=== PATIENT | female | born 1945 | race Caucasian/White ===

== ENCOUNTER 2016-12-04 22:23 | Inpatient (IN) | payer MEDICARE, OTHER ==
[2016-12-04] MEDS ORDERED: KETOROLAC 60 MG/2 ML VIAL IVP STA (23:03)
[2016-12-04] MEDS ORDERED: ONDANSETRON 4 MG/2 ML VIAL IVP STA (23:03)
[2016-12-04] MEDS ORDERED: SODIUM CHLORIDE 0.9% 1,000 ML IV ONE (23:03)
--- NOTE | 2016-12-04 23:06 | ED Physician Documentation ---
PD HPI ABD PAIN - Stated complaint Stated Complaint: ABD PX - Chief complaint Chief Complaint: Abd Pain - History obtained from History obtained from: Patient, Family - History of Present Illness Timing - onset: Enter time (2129), Today Timing - duration: Hours Timing - details: Abrupt onset, Still present Quality: Sharp, Pain Location: RLQ Improved by: Laying still Worsened by: Eating, Moving, Breathing, Position, Palpation Associated symptoms: Nausea, Vomiting Similar symptoms before: Has not had sx before Recently seen: Not recently seen - Additional information Additional information: 71-year-old female with a history of hypertension and prior hemorrhagic CVA has developed abdominal pain in the right lower quadrant today to about 9:30 PM. She felt that this may have something to do with some cookies that she ate. The pain has been persistent and worsening she vomited on the way to the hospital the pain is located in the right lower quadrant and is worse with any movement. The patient states that she is very uncomfortable. She has never had this pain previously. She has been feeling fatigued recently. Review of Systems Constitutional: reports: Fatigue. denies: Fever, Chills Eyes: denies: Decreased vision Ears: denies: Ear pain Nose: denies: Rhinorrhea / runny nose, Congestion Throat: denies: Sore throat Cardiac: denies: Chest pain / pressure, Palpitations Respiratory: denies: Dyspnea, Cough GI: reports: Abdominal Pain, Nausea, Vomiting : denies: Dysuria, Frequency Skin: denies: Rash Musculoskeletal: denies: Neck pain, Back pain, Extremity pain Neurologic: denies: Generalized weakness, Focal weakness, Numbness PD PAST MEDICAL HISTORY - Past Medical History Past Medical History: Yes Cardiovascular: Hypertension, High cholesterol Neuro: CVA Endocrine/Autoimmune: HyPOthyroidism - Past Surgical History General: 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 - Allergies Allergies/Adverse Reactions: Allergies Allergy/AdvReac Type Severity Reaction Status Date / Time No Known Drug Allergies Allergy Verified 12/04/16 22:41 - Social History Does the pt smoke?: No Smoking Status: Never smoker Does the pt drink ETOH?: No Does the pt have substance abuse?: No - Immunizations Immunizations are current?: Yes PD ED PE NORMAL - Vitals Vital signs reviewed: Yes (Normal) - General General: Alert and oriented X 3, Well developed/nourished, Other (The patient does appear to be in 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 There is referred tenderness to the right lower quadrant with palpation of the left lower quadrant. There is some right upper quadrant tenderness to palpation. There is guarding to palpation of the right lower quadrant and not to the right upper quadrant.) - Back Back: No CVA TTP, No spinal TTP - Derm Derm: Normal color, Warm and dry, No rash - Extremities Extremities: No deformity, No edema - Neuro Neuro: No motor deficit, No sensory deficit - Psych Psych: Normal mood, Normal affect Results - Vitals Vitals: Vital Signs - 24 hr 12/04/16 12/05/16 22:37 02:42 Temperature 35.2 C L Heart Rate 74 83 Respiratory 15 18 Rate Blood Pressure 113/60 105/68 O2 Saturation 98 97 Oxygen O2 Source Room air - Labs Labs: Laboratory Tests 12/04/16 12/04/16 12/05/16 23:15 23:15 00:45 WBC 11.7 H RBC 4.04 L Hgb 12.7 Hct 38.6 MCV 95.6 MCH 31.5 H MCHC 33.0 RDW 13.1 Plt Count 206 MPV 8.7 Neut # 8.7 H Lymph # 2.1 [place] # 0.7 Eos # 0.1 Baso # 0.1 Absolute Nucleated RBC 0.00 Nucleated RBCs 0.0 Sodium 140 Potassium 3.3 L Chloride 107 Carbon Dioxide 26 Anion Gap 7.0 BUN 20 Creatinine 0.6 Estimated GFR (MDRD) 99 Glucose 169 H Calcium 9.9 Total Bilirubin 0.4 AST 25 ALT 23 Alkaline Phosphatase 94 Total Protein 6.7 Albumin 4.1 Globulin 2.6 Albumin/Globulin Ratio 1.6 Lipase 44 Urine Color LT. YELLOW Urine Clarity CLEAR Urine pH 7.5 Ur Specific [place] 1.015 Urine Protein NEGATIVE Urine Glucose (UA) NEGATIVE Urine Ketones NEGATIVE Urine Occult Blood NEGATIVE Urine Nitrite NEGATIVE Urine Bilirubin NEGATIVE Urine Urobilinogen 0.2 (NORMAL) Ur Leukocyte Esterase NEGATIVE Ur Microscopic Review NOT INDICATED Urine Culture Comments NOT INDICATED Procedures - Bedside sono Bedside sono by EMP: With use of bedside ultrasound the gallbladder is imaged and is without evidence of stone and it is sonographically nontender. PD MEDICAL DECISION MAKING - ED course Complexity details: reviewed old records, reviewed results, re-evaluated patient , considered differential, d/w patient, d/w family ED course: 71-year-old female with acute right lower quadrant abdominal pain appears to have appendicitis on initial evaluation. An IV is begun she is given Toradol and Zofran intravenously and a CT scan of the abdomen and pelvis is undertaken.There is not evidence of appendicitis on the CT scan. There is evidence of bowel obstruction in the right lower quadrant. Dr. Aranda is consulted in the case and recommends admission to medicine and consultation.The patient is begun on IV saline at 150 mL's an hour she is given an additional Dilaudid intravenously for pain control as well as a K rider. Departure - Departure Disposition: [facility] DC/Xfer Clinical Impression: Small bowel obstruction Condition: Stable Discharge Date/Time: 12/05/16 04:17
[2016-12-04] MEDS ORDERED: ONDANSETRON 4 MG/2 ML VIAL ONE (23:09)
[2016-12-04] MEDS ORDERED: KETOROLAC 30 MG/ML VIAL ONE (23:09)
[2016-12-04 23:30] LABS: BASOPHILS # (AUTO) 0.1 10^3/uL (0.0-0.1); BASOPHILS % (AUTO) 0.5 %; EOSINOPHILS # (AUTO) 0.1 10^3/uL (0.0-0.7); HCT - HEMATOCRIT 38.6 % (37.0-47.0); HGB - HEMOGLOBIN 12.7 g/dL (12.0-16.0); LYMPHOCYTES # (AUTO) 2.1 10^3/uL (1.5-3.5); LYMPHOCYTES % (AUTO) 18.1 %; MEAN CORPUSCULAR HEMOGLOBIN 31.5 pg (27.0-31.0); MEAN CORPUSCULAR VOLUME 95.6 fL (81.0-99.0); MEAN PLATELET VOLUME 8.7 fL (7.9-10.8); MONOCYTES # (AUTO) 0.7 10^3/uL (0.0-1.0); NEUTROPHILS # (AUTO) 8.7 10^3/uL (1.5-6.6); NEUTROPHILS % (AUTO) 74.4 %; RED BLOOD COUNT 4.04 10^6/uL (4.20-5.40); RED CELL DISTRIBUTION WIDTH 13.1 % (12.0-15.0); UNCORRECTED WHITE BLOOD COUNT 11.7 x10^3/uL; WHITE BLOOD COUNT 11.7 x10^3/uL (4.8-10.8)
[2016-12-04 23:43] LABS: ALBUMIN/GLOBULIN RATIO 1.6 (1.0-2.2); BILIRUBIN,TOTAL 0.4 mg/dL (0.2-1.0); CALCIUM 9.9 mg/dL (8.5-10.3); CREATININE 0.6 mg/dL (0.4-1.0); POTASSIUM 3.3 mmol/L (3.5-5.0); TOTAL PROTEIN 6.7 g/dL (6.7-8.2)
--- NOTE | 2016-12-05 00:07 | CT Preliminary Report ---
Exam: CT Abdomen/Pelvis W/O IMPRESSION: 1. Cluster of mildly dilated right lower quadrant, distal small bowel loops with no definite transiti on point. This may be secondary to a regional ileus or developing obstruction. No associated fluid co llections or free air. 2. No evidence of appendicitis. Line 3. No urinary tract stones. 4. Hiatal hernia. [facility] SITE ID: [id number]
--- NOTE | 2016-12-05 00:10 | CT Report ---
EXAM: CT ABDOMEN AND PELVIS (CT KUB) EXAM DATE: 12/04/2016 11:42 PM. CLINICAL HISTORY: RLQ pain. COMPARISONS: None. TECHNIQUE: Routine axial helical CT imaging was performed through the abdomen and pelvis without IV c ontrast. Reconstructions: Coronal and sagittal. In accordance with CT protocol optimization, one or more of the following dose reduction techniques w ere utilized for this exam: automated exposure control, adjustment of mA and/or KV based on patient s ize, or use of iterative reconstructive technique. FINDINGS: Lung Bases: The visualized lung bases are clear. There is a small hiatal hernia. Right Kidney/Ureter: No stones, hydronephrosis, or hydroureter. No perinephric fat stranding. Left Kidney/Ureter: No stones, hydronephrosis, or hydroureter. No perinephric fat stranding. Other Solid Organs: Noncontrast images of the solid organs are grossly unremarkable. Gallbladder/Bile Ducts: Unremarkable. Peritoneal Cavity: There is a cluster of mildly dilated small bowel loops in the right lower quadrant with surrounding mesenteric edema. No obstructing mass or hernia seen. No associated fluid collectio ns or pneumoperitoneum. There is no evidence of appendicitis. Pelvic Organs: No bladder stones or wall thickening. Noncontrast images of the visualized pelvic orga ns are unremarkable. Vasculature: Unremarkable. Other: None. IMPRESSION: 1. Cluster of mildly dilated right lower quadrant, distal small bowel loops with no definite transiti on point. This may be secondary to a regional ileus or developing obstruction. No associated fluid co llections or free air. 2. No evidence of appendicitis. Line 3. No urinary tract stones. 4. Hiatal hernia. [facility] Referring Provider Line: [phone] SITE ID: [id number]
[2016-12-05 00:55] LABS: BILIRUBIN,URINE NEGATIVE (NEGATIVE); PH,URINE 7.5 PH (5.0-7.5)
[2016-12-05 01:02] LABS: UA CHARGE (STRIP ONLY) YES; UR CULTURE IF IND NOT INDICATED
[2016-12-05] MEDS ORDERED: POTASSIUM CHLOR 10 MEQ/100 ML 100 ML IV ONE ×2 (02:24→02:37)
[2016-12-05] MEDS ORDERED: SODIUM CHLORIDE 0.9% 1,000 ML IV ONE (02:24)
[2016-12-05] MEDS ORDERED: HYDROmorphone 1 MG/ML CARPUJECT IVP STA (02:24)
[2016-12-05] MEDS ORDERED: HYDROmorphone 1 MG/ML CARPUJECT ONE (02:36)
[2016-12-05] MEDS ORDERED: PROCHLORPERAZINE 10 MG/2 ML VIAL IVP PRN (03:44)
[2016-12-05] MEDS ORDERED: KETOROLAC 15 MG/ML VIAL IVP PRN (04:03)
--- NOTE | 2016-12-05 04:33 | HISTORY & PHYSICAL EXAMINATION ---
DATE OF ADMISSION: 12/05/2016 CHIEF COMPLAINT: Abdominal pain. HISTORY OF PRESENT ILLNESS: The patient is a pleasant 71-year-old white female with past medical history of hiatal hernia repair and hysterectomy, also with history of hypertension, hypothyroidism, and cerebrovascular accident, who was in her usual state of health up to 9 p.m. on 12/04. At that time she developed somewhat acute right lower quadrant abdominal pain. Her pain was intense, was associated with nausea and vomiting. She ate some cookies earlier and initially she thought that is what caused the problem. The pain, however, got more intense , did not resolve; therefore, one of her friends drove her to [facility]. En route, she vomited and subsequently in the ER she had several further episodes of emesis. She reported no blood in her vomitus, but she did see some bile. On further interview, she reported not having a regular bowel movement for the last 4 days. She felt constipated. She did pass some bowel movements, which were much smaller than usual. Last one was earlier on 12/05. She attributed the change in her bowel habits to change in her diet and decreased exercise. She had been staying with friends on [facility] and that is what caused the change in her daily routine. Upon presentation to the ER, the patient was hemodynamically stable and afebrile. She actually had a temperature on the lower side, 35.2 Celsius. Her heart rate was between 70 and 80, blood pressure was 110/60, respiratory rate 18. Oxygen saturation 98% on room air. Laboratory showed mildly elevated white blood cell count at 11.7. Potassium was 3.3, blood glucose was 169. Urinalysis was normal. The patient underwent CT scan of the abdomen, which revealed small- bowel obstruction without definite transition point. The ER physician, Dr. Page, talked to the covering surgeon who will consult on the case. PAST MEDICAL HISTORY 1. 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 2. Hypertension. 3. Hypothyroidism. 4. Dyslipidemia. 5. Hiatal hernia status post repair. 6. Depression. 7. Status post hysterectomy. OUTPATIENT MEDICATIONS The patient could not provide medication list, but she recalled taking 1. Lipitor. 2. Thyroid medication. 3. Lisinopril. 4. Nifedipine. 5. Fluoxetine. CODE STATUS: FULL CODE. FAMILY HISTORY: Negative for cerebrovascular accident. Positive for diabetes in multiple family members. SOCIAL HISTORY: The patient does not smoke, does not drink. REVIEW OF SYSTEMS: Please see pertinent positives listed above in history of present illness. The patient reported no additional complaints on the 12-point review. PHYSICAL EXAMINATION VITAL SIGNS: See listed above in history of present illness. GENERAL: The patient is a well-developed, well-nourished female who was not in distress. ABDOMEN: Hypoactive bowel tones, almost silent, diffuse tenderness without rebound. Abdomen felt distended, tympanic. CVS: S1, S2. No pathologic murmur. RESPIRATORY: Lungs clear to auscultation without wheezes or crackles. NEUROLOGICAL: Alert, oriented, nonfocal. PSYCH: Cooperative. LYMPH: No lymphedema. MUSCULOSKELETAL: Atraumatic. SKIN: Without jaundice or pallor. PERTINENT DIAGNOSTICS: Reviewed per ER record. ASSESSMENT AND PLAN: The patient is getting admitted with small-bowel obstruction, uncontrolled pain. Notably, she received IV Dilaudid in the ER, after which her symptoms slightly improved, but not resolved. In addition, on admission, she was found with mild hypokalemia and a slightly elevated white blood cell count. The patient is getting admitted under inpatient status. She fulfills criteria for inpatient stay given the above-listed problems. For now, she is managed conservatively, receiving bowel rest, IV hydration. She already received potassium replacement in the ER. We will recheck potassium and replace further if needed. We will check magnesium and phosphorus as well as replace if needed. The patient is going to receive proton pump inhibitor. For blood pressure control, we will use IV labetalol as needed. Notably, the patient was on nifedipine and lisinopril and due to bowel obstruction and constant nausea and vomiting, she will not be able to take oral medications. With morning laboratories, we will check lactic acid. To conservatively treat the bowel obstruction, we will decompress with an NG tube and orders are placed for that. Deep venous thrombosis prophylaxis. FULL CODE. Time spent with the care of this patient was 55 minutes. JOB #: [id number] EXT JOB #:[id number] RAFFAELE
[2016-12-05] MEDS: ONDANSETRON 4 MG/2 ML VIAL IVP PRN (04:59)
[2016-12-05 06:07] LABS: BASOPHILS % (AUTO) 0.2 %; HCT - HEMATOCRIT 38.4 % (37.0-47.0); HGB - HEMOGLOBIN 12.7 g/dL (12.0-16.0); LYMPHOCYTES # (AUTO) 0.8 10^3/uL (1.5-3.5); LYMPHOCYTES % (AUTO) 7.6 %; MEAN CORPUSCULAR HEMOGLOBIN 32.1 pg (27.0-31.0); MEAN PLATELET VOLUME 8.7 fL (7.9-10.8); MONOCYTES # (AUTO) 0.3 10^3/uL (0.0-1.0); MONOCYTES % (AUTO) 3.1 %; NEUTROPHILS # (AUTO) 8.9 10^3/uL (1.5-6.6); NEUTROPHILS % (AUTO) 89.1 %; RED BLOOD COUNT 3.96 10^6/uL (4.20-5.40); RED CELL DISTRIBUTION WIDTH 13.1 % (12.0-15.0)
[2016-12-05 06:14] LABS: CALCIUM 9.4 mg/dL (8.5-10.3); CREATININE 0.6 mg/dL (0.4-1.0); POTASSIUM 3.8 mmol/L (3.5-5.0)
[2016-12-05 06:17] LABS: MAGNESIUM 1.8 mg/dL (1.7-2.8); PHOSPHORUS 2.5 mg/dL (2.5-4.6)
[2016-12-05] MEDS: HYDROmorphone 1 MG/ML CARPUJECT IVP PRN ×4 (06:44→21:44)
[2016-12-05] MEDS: SODIUM CHLORIDE FLUSH 0.9% 10 ML SYRINGE IVP SCH ×3 (06:45→19:38)
[2016-12-05] MEDS: PANTOPRAZOLE 40 MG VIAL IVP SCH (06:48)
[2016-12-05] MEDS: LACTATED RINGERS 1,000 ML IV SCH ×2 (06:51→16:52)
--- NOTE | 2016-12-05 07:28 | XRAY Preliminary Report ---
Exam: XR Chest for Line Placement IMPRESSION: 1. Distal segment of enteric tube is coiled in a known small hiatus hernia. [facility] SITE ID: [id number]
--- NOTE | 2016-12-05 07:30 | XRAY Report ---
EXAM: CHEST RADIOGRAPHY EXAM DATE: 12/05/2016 06:16 AM. CLINICAL HISTORY: NG tube placement. COMPARISON: CT abdomen and pelvis yesterday. TECHNIQUE: 1 view. FINDINGS: Device: Interval enteric tube with the distal segment coiled in a small hiatus hernia. Lungs/Pleura: Mild bibasilar hypoventilatory change. No consolidation or vasculature congestion. No p neumothorax or pleural effusion. Mediastinum: Mildly rotated. Normal heart size. Other: No acute fracture. IMPRESSION: 1. Distal segment of enteric tube is coiled in a known small hiatus hernia. [facility] Referring Provider Line: [phone] SITE ID: [id number]
[2016-12-05] MEDS: POLYETHYLENE GLYCOL 3350 17 GM PACKET PO SCH (10:00)
--- NOTE | 2016-12-05 16:06 | CONSULTATION NOTE ---
DATE OF CONSULTATION: 12/05/2016 00:00:00 REQUESTING PROVIDER: Marry Whitney NP REASON FOR CONSULTATION: Abdominal pain, possible ileus versus small-bowel obstruction. HISTORY OF PRESENT ILLNESS: This is a 71-year-old female who presented to the emergency department yesterday in the evening with complaints of progressive crampy abdominal pain, nausea and vomiting. She said she woke up feeling nauseous and began vomiting in the morning and continued to have dry heaves throughout the day. Her abdominal pain became progressively worse and was mostly located in the right lower quadrant. Upon evaluation in the emergency department, she was noted to be hemodynamically stable with a slightly elevated white blood cell count of 11.7. Subsequently, a non-oral contrast CT scan of the abdomen was performed, which demonstrated mildly dilated loops of bowel in the right lower quadrant with no obvious transition point, concerning for ileus versus obstruction. No evidence of appendicitis. A surgical consultation was then obtained. Upon my evaluation of the patient, she is lying in bed comfortably and states that her pain has improved. She has an NG tube, which was placed early this morning, which has not drained anything. Currently, she denies any nausea. The patient states that her last bowel movement was yesterday , which was also the last time she passed gas. She denies any prior episodes of small bowel obstruction. PAST MEDICAL HISTORY: Significant for history of stroke in 2006 with residual left-sided sensory impairment, hypertension, hypothyroidism, dyslipidemia, hiatal hernia, depression. PAST SURGICAL HISTORY: Hysterectomy and ventral hernia repair. HOME MEDICATIONS 1. Lipitor. 2. Levothyroxine. 3. Lisinopril. 4. Nifedipine. 5. Fluoxetine. ALLERGIES TO MEDICATIONS: NO KNOWN DRUG ALLERGIES. SOCIAL HISTORY: The patient has 2 friends, which are present at the bedside, which she considers family. She does not smoke or use alcohol. PHYSICAL EXAMINATION VITAL SIGNS: Temperature is 36.2, heart rate is 96, blood pressure is 144/68, respiratory rate is 20, O2 saturation is 93% on room air. GENERAL: The patient is awake, alert, oriented x3, in no acute distress. She is of average build. CARDIOVASCULAR: Regular rate and rhythm. CHEST: Clear to auscultation bilaterally with no rhonchi or wheezing. ABDOMEN: Soft, very slightly distended, mildly tender to palpation in the pelvic region and right lower quadrant. EXTREMITIES: Nonedematous. LABORATORY VALUES: On admission, white blood cell count 11.7, hemoglobin 12.7, hematocrit 38.6, platelets 206. Sodium 140, potassium 3.3, chloride 107, bicarbonate 26, BUN 20, creatinine 0.6. Lactate 1.6. ASSESSMENT: This is a 71-year-old female who presents with abdominal pain, ileus pattern versus small-bowel obstruction. PLAN: The patient should be kept n.p.o. with an NG tube to low continuous wall suction. The NG tube was repositioned upon my evaluation of the patient with minimal clear fluid evacuated during this process. I recommend performing a small bowel series to determine ileus versus small-bowel obstruction. Once the patient demonstrates bowel function and is passing flatus, the NG tube can be clamped and clear liquids started. I have encouraged the patient to ambulate as much as possible and discussed with her the role of possible surgery if a bowel obstruction is discovered on imaging and this does not resolve with conservative management. JOB #: [id number] EXT JOB #:[id number] RAFFAELE
[2016-12-06] MEDS: HYDROmorphone 1 MG/ML CARPUJECT IVP PRN ×5 (02:41→19:07)
[2016-12-06] MEDS: SODIUM CHLORIDE FLUSH 0.9% 10 ML SYRINGE IVP SCH ×3 (02:41→16:34)
[2016-12-06] MEDS: LACTATED RINGERS 1,000 ML IV SCH (05:18)
[2016-12-06 05:55] LABS: BASOPHILS % (AUTO) 0.2 %; HCT - HEMATOCRIT 43.6 % (37.0-47.0); HGB - HEMOGLOBIN 14.4 g/dL (12.0-16.0); LYMPHOCYTES # (AUTO) 0.9 10^3/uL (1.5-3.5); LYMPHOCYTES % (AUTO) 5.7 %; MEAN CORPUSCULAR HEMOGLOBIN 31.8 pg (27.0-31.0); MEAN CORPUSCULAR HGB CONC 33.1 g/dL (32.0-36.0); MEAN CORPUSCULAR VOLUME 96.2 fL (81.0-99.0); MEAN PLATELET VOLUME 8.2 fL (7.9-10.8); MONOCYTES # (AUTO) 1.1 10^3/uL (0.0-1.0); MONOCYTES % (AUTO) 7.1 %; NEUTROPHILS # (AUTO) 13.4 10^3/uL (1.5-6.6); RED BLOOD COUNT 4.53 10^6/uL (4.20-5.40); RED CELL DISTRIBUTION WIDTH 13.3 % (12.0-15.0); UNCORRECTED WHITE BLOOD COUNT 15.5 x10^3/uL; WHITE BLOOD COUNT 15.5 x10^3/uL (4.8-10.8)
[2016-12-06 06:10] LABS: ALBUMIN/GLOBULIN RATIO 1.2 (1.0-2.2); BILIRUBIN,TOTAL 0.6 mg/dL (0.2-1.0); CALCIUM 9.6 mg/dL (8.5-10.3); CREATININE 0.6 mg/dL (0.4-1.0); MAGNESIUM 1.8 mg/dL (1.7-2.8); POTASSIUM 4.2 mmol/L (3.5-5.0); TOTAL PROTEIN 6.3 g/dL (6.7-8.2)
[2016-12-06] MEDS: PANTOPRAZOLE 40 MG VIAL IVP SCH (06:21)
--- NOTE | 2016-12-06 08:10 | PROVIDER PROGRESS NOTE ---
Subjective - Prog Note Date Prog Note Date: 12/06/16 Prog Note Time: 08:09 - Subjective Pt reports feeling: Improved Subjective: Patient seen at bedside and states she is still having some mild pain in the right lower quadrant and is tender with palpation. has no fever but some mild chills last night. She has no chest pain or shortness of breath. no nausea. pending xray with gastrograffin follow thru since can not do a small bowel follow thru with no flouroscopy Current Medications - Current Medications Current Medications: Abnormal Lab Results 12/04/16 12/04/16 12/05/16 23:15 23:15 05:55 WBC 11.7 x10^3/uL H x10^3/uL (4.8-10.8) RBC 4.04 10^6/uL L 10^6/uL 3.96 10^6/uL L 10^6/uL (4.20-5.40) (4.20-5.40) MCH 31.5 pg H pg 32.1 pg H pg (27.0-31.0) (27.0-31.0) Neut # 8.7 10^3/uL H 10^3/uL 8.9 10^3/uL H 10^3/uL (1.5-6.6) (1.5-6.6) Lymph # 0.8 10^3/uL L 10^3/uL (1.5-3.5) Hall # Potassium 3.3 mmol/L L mmol/L (3.5-5.0) Glucose 169 mg/dL H mg/dL (70-100) Estim Average Glucose Total Protein 12/05/16 12/06/16 12/06/16 05:55 05:35 05:35 WBC 15.5 x10^3/uL H x10^3/uL (4.8-10.8) RBC MCH 31.8 pg H pg (27.0-31.0) Neut # 13.4 10^3/uL H 10^3/uL (1.5-6.6) Lymph # 0.9 10^3/uL L 10^3/uL (1.5-3.5) Hall # 1.1 10^3/uL H 10^3/uL (0.0-1.0) Potassium Glucose 175 mg/dL H mg/dL 163 mg/dL H mg/dL (70-100) (70-100) Estim Average Glucose Total Protein 6.3 g/dL L g/dL (6.7-8.2) 12/06/16 08:35 WBC RBC MCH Neut # Lymph # Hall # Potassium Glucose Estim Average Glucose 105 H (70-100) Total Protein Active Medications Generic Name Dose Route Start Last Admin Trade Name Freq PRN Reason Stop Dose Admin Hydromorphone HCl 1 mg 12/05/16 03:44 12/06/16 14:19 Dilaudid Inj IVP 1 mg Q2HR PRN Administration Pain 8 to 10 Lactated Ringer's 1,000 mls @ 80 mls/hr 12/05/16 04:00 12/06/16 05:18 Lr IV 80 mls/hr .[id number] TUTU Administration Piperacillin Sod/Tazobactam 100 mls @ 200 mls/hr 12/06/16 16:00 12/06/16 16:32 Sod 3.375 gm/ Sodium Chloride IV 200 mls/hr Q6H TUTU Administration Labetalol HCl 10 mg 12/05/16 03:50 Trandate Inj IV Q8HR PRN Blood Pressure Ondansetron HCl 4 mg 12/05/16 03:44 12/05/16 04:59 Zofran Inj IVP 4 mg Q6HR PRN Administration Nausea / Vomiting Pantoprazole Sodium 40 mg 12/05/16 07:00 12/06/16 06:21 Protonix IVP 40 mg QDAC TUTU Administration Polyethylene Glycol 17 gm 12/05/16 09:00 12/06/16 09:35 Miralax PO Not Given DAILY TUTU Prochlorperazine Edisylate 10 mg 12/05/16 03:44 Compazine Inj IVP Q6HR PRN Nausea / Vomiting Sodium Chloride 10 ml 12/05/16 03:44 Normal Saline Flush 0.9% IVP PRN PRN NEEDED PER PROVIDER ORDERS Sodium Chloride 10 ml 12/05/16 06:00 12/06/16 16:34 Normal Saline Flush 0.9% IVP 10 ml Q8HR TUTU Administration Atorvastatin Calcium 20 mg PO DAILY 12/05/16 Fluoxetine HCl 20 mg PO DAILY PM 12/05/16 Levothyroxine [Synthroid] 25 mcg PO QDAC 12/05/16 Liothyronine [Cytomel] 15 mcg PO QDAC 12/05/16 Lisinopril 40 mg PO DAILY 12/05/16 Nifedipine [Nifedipine ER] 60 mg PO DAILY 12/05/16 Objective - Vital Signs/Intake & Output Reviewed Vital Signs: Yes Vital Signs: Vital Signs x48h Temp Pulse Resp BP Pulse Ox 12/06/16 07:28 36.4 C L 94 20 129/70 94 12/06/16 05:00 37.3 C 109 H 16 153/73 H 93 12/06/16 00:29 37.4 C 105 H 16 125/70 94 Intake & Output: Intake & Output 12/03/16 12/04/16 12/05/16 12/06/16 23:59 23:59 23:59 23:59 Intake Total 1796 655 Balance 1796 655 - Objective General Appearance: positive: No acute distress, Alert Eyes Bilateral: positive: Normal inspection, PERRL ENT: positive: ENT inspection nml, Pharynx nml, No signs of dehydration Neck: positive: Nml inspection, Thyroid nml, No JVD, Trachea midline Respiratory: positive: Chest non-tender, No respiratory distress, Breath sounds nml Cardiovascular: positive: Regular rate & rhythm, No murmur, No gallop Abdomen: positive: No organomegaly, No distention, Tenderness (right lower quadrant with palpation). negative: Guarding, Rebound Back: positive: Nml inspection. negative: CVA tenderness (R), CVA tenderness (L ) Skin: positive: Color nml, No rash, Warm, Dry, Cyanosis Extremities: positive: Non-tender, Full ROM, Nml appearance Neurologic/Psychiatric: positive: Oriented x3, CN's nml (2-12), Motor nml, Sensation nml, Mood/affect nml - Lab Results Fish Bones: 12/07/16 05:53 12/07/16 05:53 Other Labs: Lab Results x24hrs 12/06/16 12/06/16 Range/Units 05:35 05:35 WBC 15.5 H (4.8-10.8) x10^3/uL RBC 4.53 (4.20-5.40) 10^6/uL Hgb 14.4 (12.0-16.0) g/dL Hct 43.6 (37.0-47.0) % MCV 96.2 (81.0-99.0) fL MCH 31.8 H (27.0-31.0) pg MCHC 33.1 (32.0-36.0) g/dL RDW 13.3 (12.0-15.0) % Plt Count 210 (130-450) 10^3/uL MPV 8.2 (7.9-10.8) fL Neut # 13.4 H (1.5-6.6) 10^3/uL Lymph # 0.9 L (1.5-3.5) 10^3/uL Hall # 1.1 H (0.0-1.0) 10^3/uL Eos # 0.0 (0.0-0.7) 10^3/uL Baso # 0.0 (0.0-0.1) 10^3/uL Absolute Nucleated RBC 0.00 x10^3/uL Nucleated RBCs 0.0 /100WBC Sodium 140 (135-145) mmol/L Potassium 4.2 (3.5-5.0) mmol/L Chloride 106 (101-111) mmol/L Carbon Dioxide 28 (21-32) mmol/L Anion Gap 6.0 (6-13) BUN 18 (6-20) mg/dL Creatinine 0.6 (0.4-1.0) mg/dL Estimated GFR (MDRD) 99 (>89) Glucose 163 H (70-100) mg/dL Calcium 9.6 (8.5-10.3) mg/dL Magnesium 1.8 (1.7-2.8) mg/dL Total Bilirubin 0.6 (0.2-1.0) mg/dL AST 22 (10-42) IU/L ALT 19 (10-60) IU/L Alkaline Phosphatase 79 (42-121) IU/L Total Protein 6.3 L (6.7-8.2) g/dL Albumin 3.4 (3.2-5.5) g/dL Globulin 2.9 (2.1-4.2) g/dL Albumin/Globulin Ratio 1.2 (1.0-2.2) - Diagnostic Imaging Diagnostic Imaging Results: positive: Prelim report reviewed Diagnostic Imaging Comments: small dialated loops of bowel with thickening and with fluid. Assessment/Plan - Problem List (1) Small bowel obstruction Impression: Small bowel obstruction vs ileus - ACUTE CONTINUE WITH NG TO SUCTION. SURGERY ON CONSULT. PENDING GASTROGRAFFIN STUDY XRAY FOR ILEUS VS SBO. (2) Leukocytosis, unspecified Impression: [place] [address]. CONTINUE TO MONITOR DAILY WITH LAB DRAWS. CONTINUE WITH IVF NS AND PAIN MANAGEMENT. NPO Qualifiers: Leukocytosis type: unspecified Qualified Code(s): D72.829 - Elevated white blood cell count, unspecified
[2016-12-06] MEDS: POLYETHYLENE GLYCOL 3350 17 GM PACKET PO SCH (09:35)
--- NOTE | 2016-12-06 13:25 | PROVIDER PROGRESS NOTE ---
Subjective - General Admit Date: 12/05/16 - Review of Systems Drain Type: ngt Drain Output Description: 400 bilious General: positive: No symptoms Pulmonary: positive: No symptoms Cardiovascular: positive: No symptoms Gastrointestinal: positive: Other (denies emesis but occasional nausea. No flatus. Minimal abdominal pain which is imprpving since admission) Psychiatric: positive: No symptoms Objective - Patient Data Reviewed Vital Signs: Yes Vital Signs: Vital Signs x48h Temp Pulse Resp BP BP Pulse Ox 12/06/16 10:54 36.9 C 91 20 151/80 H 90 L 12/06/16 07:28 36.4 C L 94 20 129/70 94 Weight: Weight 12/04/16 12/05/16 12/06/16 23:59 23:59 23:59 Weight (kg) 67 kg Intake & Output: Intake and Output Totals x24h 12/04/16 12/05/16 12/06/16 23:59 23:59 23:59 Intake Total 1796 675 Balance 1796 675 - Lab Results Lab Results: 12/06/16 05:35 12/06/16 05:35 Other Lab Results: Lab Results x24hrs 12/06/16 12/06/16 Range/Units 05:35 05:35 WBC 15.5 H (4.8-10.8) x10^3/uL RBC 4.53 (4.20-5.40) 10^6/uL Hgb 14.4 (12.0-16.0) g/dL Hct 43.6 (37.0-47.0) % MCV 96.2 (81.0-99.0) fL MCH 31.8 H (27.0-31.0) pg MCHC 33.1 (32.0-36.0) g/dL RDW 13.3 (12.0-15.0) % Plt Count 210 (130-450) 10^3/uL MPV 8.2 (7.9-10.8) fL Neut # 13.4 H (1.5-6.6) 10^3/uL Lymph # 0.9 L (1.5-3.5) 10^3/uL [place] # 1.1 H (0.0-1.0) 10^3/uL Eos # 0.0 (0.0-0.7) 10^3/uL Baso # 0.0 (0.0-0.1) 10^3/uL Absolute Nucleated RBC 0.00 x10^3/uL Nucleated RBCs 0.0 /100WBC Sodium 140 (135-145) mmol/L Potassium 4.2 (3.5-5.0) mmol/L Chloride 106 (101-111) mmol/L Carbon Dioxide 28 (21-32) mmol/L Anion Gap 6.0 (6-13) BUN 18 (6-20) mg/dL Creatinine 0.6 (0.4-1.0) mg/dL Estimated GFR (MDRD) 99 (>89) Glucose 163 H (70-100) mg/dL Calcium 9.6 (8.5-10.3) mg/dL Magnesium 1.8 (1.7-2.8) mg/dL Total Bilirubin 0.6 (0.2-1.0) mg/dL AST 22 (10-42) IU/L ALT 19 (10-60) IU/L Alkaline Phosphatase 79 (42-121) IU/L Total Protein 6.3 L (6.7-8.2) g/dL Albumin 3.4 (3.2-5.5) g/dL Globulin 2.9 (2.1-4.2) g/dL Albumin/Globulin Ratio 1.2 (1.0-2.2) - Current Medications Current Medications: Current Medications Generic Name Dose Route Start Last Admin Trade Name Freq PRN Reason Stop Dose Admin Hydromorphone HCl 1 mg 12/05/16 03:44 12/06/16 09:35 Dilaudid Inj IVP 1 mg Q2HR PRN Administration Pain 8 to 10 Lactated Ringer's 1,000 mls @ 80 mls/hr 12/05/16 04:00 12/06/16 05:18 Lr IV 80 mls/hr .[id number] TUTU Administration Ondansetron HCl 4 mg 12/05/16 03:44 12/05/16 04:59 Zofran Inj IVP 4 mg Q6HR PRN Administration Nausea / Vomiting Pantoprazole Sodium 40 mg 12/05/16 07:00 12/06/16 06:21 Protonix IVP 40 mg QDAC TUTU Administration Polyethylene Glycol 17 gm 12/05/16 09:00 12/06/16 09:35 Miralax PO Not Given DAILY [facility] Sodium Chloride 10 ml 12/05/16 06:00 12/06/16 12:57 Normal Saline Flush 0.9% IVP Not Given Q8HR TUTU - Physical Exam General Appearance: positive: No acute distress Respiratory: positive: Breath sounds nml Cardiovascular: positive: Regular rate & rhythm Abdomen: positive: Other (soft, minimally distended with mild tenderness to palpation more prominent in RLQ.) Extremities: positive: No pedal edema Neurologic/Psychiatric: positive: Oriented x3 Impression/Plan - Problem List Problem List: Small bowel obstruction vs ileus - Continue NGT to suction. Will obtain gastrograffin study with 100 cc non- diluted gastrograffin and serial abdominal xrays to determine ileus vs SBO. - Leukocytosis - uncertain etiology. Patient remains afebrile. Abd xray repeat with no signs of free air. Will continue to monitor. No findings on initial CT to suggest appendicitis or other intra-abdominal infectious etiology other than dilated loops of small bowel. - Encourage ambulation - IV fluid hydration
[2016-12-06] MEDS: PIPERACILLIN/TAZOBACTAM 3.375 GM in SODIUM CHLORIDE 0.9% MINIBAG 100 ML IV SCH ×2 (16:32→21:49)
[2016-12-06 17:09] LABS: HEMOGLOBIN A1C 0.53 g/dL
--- NOTE | 2016-12-06 17:42 | Ultrasound Report ---
LIMITED ABDOMEN ULTRASOUND: 12/06/2016 HISTORY: Right lower quadrant pain. Elevated white count. Real-time scanning by the statement request clerk with saved static images reviewed. COMPARISON: CT scan abdomen and pelvis 12/04/2016. FINDINGS: The appendix is not definitely identified. There is a small amount of free fluid in the right lower quadrant. Extensive fluid-filled mildly thick walled bowel with limited compressibility is seen in the right lower quadrant. No definite abscess collection is seen. IMPRESSION: THE APPENDIX IS NOT IDENTIFIED WITH CERTAINTY. DILATED LOOPS OF FLUID-FILLED BOWEL WITH MILDLY THICKENED WALL AND LIMITED COMPRESSIBILITY ARE PRESENT. IF THE CLINICAL SUSPICION FOR APPENDICITIS IS HIGH, SUGGEST REPEAT CT SCAN OF THE ABDOMEN AND PELVIS WITH IV CONTRAST IF POSSIBLE. JOB #: [id number] EXT JOB #: [id number] MTDFarideh
[2016-12-06] MEDS: SODIUM CHLORIDE FLUSH 0.9% 10 ML SYRINGE IVP PRN ×2 (19:07→19:10)
[2016-12-06] MEDS ORDERED: IOPAMIDOL-300 100 ML VIAL IVP ONE (22:28)
--- NOTE | 2016-12-06 23:23 | CT Preliminary Report ---
Exam: CT Abdomen/Pelvis W/ IMPRESSION: 1. Mid to distal small bowel obstruction. 2. New mild ascites. 3. Right pleural effusion with right lower lobe volume loss and consolidation. [facility] SITE ID: [id number]
--- NOTE | 2016-12-06 23:26 | CT Report ---
EXAM: CT ABDOMEN AND PELVIS EXAM DATE: 12/06/2016 10:31 PM. CLINICAL HISTORY: Right lower quadrant pain. Elevated white count. COMPARISONS: 12/04/2016. TECHNIQUE: Routine helical CT imaging was performed through the abdomen and pelvis. IV contrast: 100 cc of Isovue-300. Enteric contrast: Yes. Reconstructions: Coronal and sagittal. In accordance with CT protocol optimization, one or more of the following dose reduction techniques w ere utilized for this exam: automated exposure control, adjustment of mA and/or KV based on patient s ize, or use of iterative reconstructive technique. FINDINGS: Lung Bases: Small hiatal hernia. NG tube in place. Small right pleural effusion with right lower lobe volume loss and consolidation. Liver: Normal. No masses. Gallbladder/Bile Ducts: Unremarkable. Spleen: Normal. Pancreas: Normal. Adrenal Glands: Normal. Kidneys: Normal. No masses or hydronephrosis. Peritoneal Cavity/Bowel: New mild ascites. No free air or adenopathy. No masses. Increasing small bow el dilatation down to a transition point in the right pelvis where there is a stricture and a thicken ed small bowel loop. The appendix is well visualized and normal. Pelvic Organs: Hysterectomy. Unremarkable bladder. Ovaries are not identified. Vasculature: No aneurysms or other significant abnormality. Bones: Advanced degenerative disk disease at L4-L5 and L5-S1. Other: None. IMPRESSION: 1. Mid to distal small bowel obstruction. 2. New mild ascites. 3. Right pleural effusion with right lower lobe volume loss and consolidation. [facility] Referring Provider Line: [phone] SITE ID: [id number]
[2016-12-07] MEDS: SODIUM CHLORIDE FLUSH 0.9% 10 ML SYRINGE IVP PRN (00:49)
[2016-12-07] MEDS: ONDANSETRON 4 MG/2 ML VIAL IVP PRN ×2 (00:49→16:14)
[2016-12-07] MEDS: HYDROmorphone 1 MG/ML CARPUJECT IVP PRN ×3 (01:01→21:22)
[2016-12-07] MEDS: LACTATED RINGERS 1,000 ML IV SCH ×3 (01:24→21:00)
[2016-12-07] MEDS: SODIUM CHLORIDE FLUSH 0.9% 10 ML SYRINGE IVP SCH ×3 (05:47→15:56)
[2016-12-07] MEDS: PIPERACILLIN/TAZOBACTAM 3.375 GM in SODIUM CHLORIDE 0.9% MINIBAG 100 ML IV SCH ×4 (06:03→21:04)
[2016-12-07 06:17] LABS: BASOPHILS % (AUTO) 0.2 %; EOSINOPHILS % (AUTO) 0.1 %; HCT - HEMATOCRIT 42.5 % (37.0-47.0); LYMPHOCYTES # (AUTO) 0.8 10^3/uL (1.5-3.5); LYMPHOCYTES % (AUTO) 6.6 %; MEAN CORPUSCULAR HEMOGLOBIN 31.8 pg (27.0-31.0); MEAN CORPUSCULAR HGB CONC 32.9 g/dL (32.0-36.0); MEAN CORPUSCULAR VOLUME 96.6 fL (81.0-99.0); MEAN PLATELET VOLUME 8.8 fL (7.9-10.8); MONOCYTES % (AUTO) 8.9 %; NEUTROPHILS # (AUTO) 9.7 10^3/uL (1.5-6.6); NEUTROPHILS % (AUTO) 84.2 %; RED CELL DISTRIBUTION WIDTH 13.4 % (12.0-15.0); UNCORRECTED WHITE BLOOD COUNT 11.5 x10^3/uL; WHITE BLOOD COUNT 11.5 x10^3/uL (4.8-10.8)
[2016-12-07] MEDS: PANTOPRAZOLE 40 MG VIAL IVP SCH (06:24)
[2016-12-07 06:26] LABS: BILIRUBIN,TOTAL 0.9 mg/dL (0.2-1.0); CALCIUM 9.2 mg/dL (8.5-10.3); CREATININE 0.5 mg/dL (0.4-1.0); POTASSIUM 4.1 mmol/L (3.5-5.0); TOTAL PROTEIN 6.3 g/dL (6.7-8.2)
--- NOTE | 2016-12-07 07:58 | PROVIDER PROGRESS NOTE ---
Subjective - Prog Note Date Prog Note Date: 12/07/16 Prog Note Time: 07:56 - Subjective Pt reports feeling: Improved Subjective: Patient is seen at bedside and has been sleeping alot this morning. pain improving mostly in the right quadrant lower pelvis. will encourage her to walk today. she has not been out of bed much. she has no nausea. no chest pain or shortness of breath. NG tube with brown green drainage, approx 150ml out Current Medications - Current Medications Current Medications: Active Medications Generic Name Dose Route Start Last Admin Trade Name Freq PRN Reason Stop Dose Admin Hydromorphone HCl 1 mg 12/05/16 03:44 12/07/16 01:01 Dilaudid Inj IVP 1 mg Q2HR PRN Administration Pain 8 to 10 Lactated Ringer's 1,000 mls @ 80 mls/hr 12/05/16 04:00 12/07/16 06:45 Lr IV Not Given .[id number] TUTU Piperacillin Sod/Tazobactam 100 mls @ 200 mls/hr 12/06/16 16:00 12/07/16 06:03 Sod 3.375 gm/ Sodium Chloride IV 200 mls/hr Q6H TUTU Administration Labetalol HCl 10 mg 12/05/16 03:50 Trandate Inj IV Q8HR PRN Blood Pressure Ondansetron HCl 4 mg 12/05/16 03:44 12/07/16 00:49 Zofran Inj IVP 4 mg Q6HR PRN Administration Nausea / Vomiting Pantoprazole Sodium 40 mg 12/05/16 07:00 12/07/16 06:24 Protonix IVP 40 mg QDAC TUTU Administration Polyethylene Glycol 17 gm 12/05/16 09:00 12/06/16 09:35 Miralax PO Not Given DAILY TUTU Prochlorperazine Edisylate 10 mg 12/05/16 03:44 Compazine Inj IVP Q6HR PRN Nausea / Vomiting Sodium Chloride 10 ml 12/05/16 03:44 12/07/16 00:49 Normal Saline Flush 0.9% IVP 10 ml PRN PRN Administration NEEDED PER PROVIDER ORDERS Sodium Chloride 10 ml 12/05/16 06:00 12/07/16 05:47 Normal Saline Flush 0.9% IVP Not Given Q8HR TUTU Atorvastatin Calcium 20 mg PO DAILY 12/05/16 Fluoxetine HCl 20 mg PO DAILY PM 12/05/16 Levothyroxine [Synthroid] 25 mcg PO QDAC 12/05/16 Liothyronine [Cytomel] 15 mcg PO QDAC 12/05/16 Lisinopril 40 mg PO DAILY 12/05/16 Nifedipine [Nifedipine ER] 60 mg PO DAILY 12/05/16 Objective - Vital Signs/Intake & Output Vital Signs: Vital Signs x48h Temp Pulse Resp BP Pulse Ox 12/07/16 07:46 37.3 C 95 16 144/72 H 92 12/07/16 05:00 37.3 C 99 16 151/79 H 92 Intake & Output: Intake & Output 12/04/16 12/05/16 12/06/16 12/07/16 23:59 23:59 23:59 23:59 Intake Total 1796 1015 701 Output Total 600 450 Balance 1796 415 251 - Objective General Appearance: positive: No acute distress, Alert Eyes Bilateral: positive: Normal inspection, PERRL, EOMI ENT: positive: ENT inspection nml, Pharynx nml, No signs of dehydration Neck: positive: Nml inspection, Thyroid nml, No JVD, Trachea midline Respiratory: positive: Chest non-tender, No respiratory distress, Breath sounds nml Cardiovascular: positive: Regular rate & rhythm, No murmur, No gallop Abdomen: negative: Guarding, Rebound Rectal: negative: Hemorrhoid Back: positive: Nml inspection. negative: CVA tenderness (R) Skin: positive: Color nml, No rash, Warm, Dry Extremities: positive: Non-tender, Full ROM, Nml appearance, No pedal edema Neurologic/Psychiatric: positive: Oriented x3, CN's nml (2-12), Motor nml, Sensation nml, Weakness - Lab Results Fish Bones: 12/07/16 05:53 12/07/16 05:53 Other Labs: Lab Results x24hrs 12/07/16 12/07/16 12/06/16 Range/Units 05:53 05:53 08:35 WBC 11.5 H (4.8-10.8) x10^3/uL RBC 4.40 (4.20-5.40) 10^6/uL Hgb 14.0 (12.0-16.0) g/dL Hct 42.5 (37.0-47.0) % MCV 96.6 (81.0-99.0) fL MCH 31.8 H (27.0-31.0) pg MCHC 32.9 (32.0-36.0) g/dL RDW 13.4 (12.0-15.0) % Plt Count 194 (130-450) 10^3/uL MPV 8.8 (7.9-10.8) fL Neut # 9.7 H (1.5-6.6) 10^3/uL Lymph # 0.8 L (1.5-3.5) 10^3/uL [place] # 1.0 (0.0-1.0) 10^3/uL Eos # 0.0 (0.0-0.7) 10^3/uL Baso # 0.0 (0.0-0.1) 10^3/uL Absolute Nucleated RBC 0.00 x10^3/uL Nucleated RBCs 0.0 /100WBC Sodium 141 (135-145) mmol/L Potassium 4.1 (3.5-5.0) mmol/L Chloride 106 (101-111) mmol/L Carbon Dioxide 28 (21-32) mmol/L Anion Gap 7.0 (6-13) BUN 22 H (6-20) mg/dL Creatinine 0.5 (0.4-1.0) mg/dL Estimated GFR (MDRD) 122 (>89) Glucose 150 H (70-100) mg/dL Glycated Hemoglobin 5.3 (4.6-6.2) % Estim Average Glucose 105 H (70-100) Calcium 9.2 (8.5-10.3) mg/dL Total Bilirubin 0.9 (0.2-1.0) mg/dL AST 21 (10-42) IU/L ALT 17 (10-60) IU/L Alkaline Phosphatase 70 (42-121) IU/L Total Protein 6.3 L (6.7-8.2) g/dL Albumin 3.2 (3.2-5.5) g/dL Globulin 3.1 (2.1-4.2) g/dL Albumin/Globulin Ratio 1.0 (1.0-2.2) Amylase 32 (28-100) U/L Lipase 23 (22-51) U/L - Diagnostic Imaging Diagnostic Imaging Results: positive: Final report reviewed Assessment/Plan - Problem List (1) Small bowel obstruction Impression: IMPROVING. PAIN BETTER. CONTINUE WITH PAIN REGIME, IV NEEDED. CONTINUE WITH IVF FOR HYDRATION AND WILL ADVANCE DIET TO CLEARS PENDING SURGERY IN AGREEMENT AND PATIENT STABLE, HOWEVER. CT LAST NIGHT SHOWED MILD ASCITES AND POSSIBLE STRICTURE WITH OBSTRUCTION STILL. SMALL BOWEL WALL THICKENING. NO FREE AIR OR MASS. NO APPENDICITIS NOTED (2) Leukocytosis, unspecified Impression: IMPROVING. CONTINUE WITH ZOSYN IV AND MONITOR CBC WITH DAILY LAB DRAWS. CONTINUE WITH IVF FOR HYDRATION AND MONITOR ELECTROLYTES. SURGERY ON CONSULT Qualifiers: Leukocytosis type: unspecified Qualified Code(s): D72.829 - Elevated white blood cell count, unspecified (3) Hyperglycemia, unspecified Impression: ACUTE. HEMO A1C IS WITHIN NORMAL LIMITS AT 5.3. CONTINUE TO MONITOR PROBABLY DUE TO ILLNESS.
--- NOTE | 2016-12-07 09:24 | XRAY Report ---
SMALL BOWEL FOLLOWTHROUGH: HISTORY: Abdominal pain. COMPARISON: CT scan abdomen and pelvis 12/04/2016. FINDINGS: The preliminary cloth trimmer hand film shows a nasogastric tube ending in the stomach. A total of 100 mL of Gastrografin are instilled via nasogastric tube. Sequential imaging for a durat ion of 22 hours is performed. A hiatal hernia is present. Contrast progresses easily from stomach t hrough small bowel to colon reaching the rectum by 22 hours. Additional contrast noted in the urinar y bladder from a recent CT scan. Mildly prominent loops of small bowel are noted. IMPRESSION: ORAL CONTRAST REACHES THE RECTUM BY 22 HOURS. NO EVIDENCE OF COMPLETE SMALL BOWEL OBSTR UCTION. A PARTIAL OBSTRUCTION MAY BE PRESENT. 9:9:17 JOB #: [id number] EXT JOB #:[id number]
[2016-12-07] MEDS: POLYETHYLENE GLYCOL 3350 17 GM PACKET PO SCH (09:36)
--- NOTE | 2016-12-07 13:45 | PROVIDER PROGRESS NOTE ---
Subjective - General Admit Date: 12/05/16 - Review of Systems Drain Type: ngt Drain Output Description: 300 bilious General: positive: No symptoms Pulmonary: positive: No symptoms Cardiovascular: positive: No symptoms Gastrointestinal: positive: Other (states that abdominal pain is improving but she is still taking pain medication PRN. No flautus, no BM) Psychiatric: positive: No symptoms Objective - Patient Data Vital Signs: Vital Signs x48h Temp Pulse Resp BP Pulse Ox 12/07/16 07:46 37.3 C 95 16 144/72 H 92 Weight: Weight 12/05/16 12/06/16 12/07/16 23:59 23:59 23:59 Weight (kg) 67 kg Intake & Output: Intake and Output Totals x24h 12/05/16 12/06/16 12/07/16 23:59 23:59 23:59 Intake Total 1796 1015 1341 Output Total 600 450 Balance 1796 415 891 - Lab Results Lab Results: 12/07/16 05:53 12/07/16 05:53 Other Lab Results: Lab Results x24hrs 12/07/16 12/07/16 12/07/16 Range/Units 05:53 05:53 05:53 WBC 11.5 H (4.8-10.8) x10^3/uL RBC 4.40 (4.20-5.40) 10^6/uL Hgb 14.0 (12.0-16.0) g/dL Hct 42.5 (37.0-47.0) % MCV 96.6 (81.0-99.0) fL MCH 31.8 H (27.0-31.0) pg MCHC 32.9 (32.0-36.0) g/dL RDW 13.4 (12.0-15.0) % Plt Count 194 (130-450) 10^3/uL MPV 8.8 (7.9-10.8) fL Neut # 9.7 H (1.5-6.6) 10^3/uL Lymph # 0.8 L (1.5-3.5) 10^3/uL [place] # 1.0 (0.0-1.0) 10^3/uL Eos # 0.0 (0.0-0.7) 10^3/uL Baso # 0.0 (0.0-0.1) 10^3/uL Absolute Nucleated RBC 0.00 x10^3/uL Nucleated RBCs 0.0 /100WBC Sodium 141 (135-145) mmol/L Potassium 4.1 (3.5-5.0) mmol/L Chloride 106 (101-111) mmol/L Carbon Dioxide 28 (21-32) mmol/L Anion Gap 7.0 (6-13) BUN 22 H (6-20) mg/dL Creatinine 0.5 (0.4-1.0) mg/dL Estimated GFR (MDRD) 122 (>89) Glucose 150 H (70-100) mg/dL Glycated Hemoglobin (4.6-6.2) % Estim Average Glucose (70-100) Calcium 9.2 (8.5-10.3) mg/dL Magnesium 2.1 (1.7-2.8) mg/dL Total Bilirubin 0.9 (0.2-1.0) mg/dL AST 21 (10-42) IU/L ALT 17 (10-60) IU/L Alkaline Phosphatase 70 (42-121) IU/L Total Protein 6.3 L (6.7-8.2) g/dL Albumin 3.2 (3.2-5.5) g/dL Globulin 3.1 (2.1-4.2) g/dL Albumin/Globulin Ratio 1.0 (1.0-2.2) Amylase 32 (28-100) U/L Lipase 23 (22-51) U/L 12/06/16 Range/Units 08:35 WBC (4.8-10.8) x10^3/uL RBC (4.20-5.40) 10^6/uL Hgb (12.0-16.0) g/dL Hct (37.0-47.0) % MCV (81.0-99.0) fL MCH (27.0-31.0) pg MCHC (32.0-36.0) g/dL RDW (12.0-15.0) % Plt Count (130-450) 10^3/uL MPV (7.9-10.8) fL Neut # (1.5-6.6) 10^3/uL Lymph # (1.5-3.5) 10^3/uL [place] # (0.0-1.0) 10^3/uL Eos # (0.0-0.7) 10^3/uL Baso # (0.0-0.1) 10^3/uL Absolute Nucleated RBC x10^3/uL Nucleated RBCs /100WBC Sodium (135-145) mmol/L Potassium (3.5-5.0) mmol/L Chloride (101-111) mmol/L Carbon Dioxide (21-32) mmol/L Anion Gap (6-13) BUN (6-20) mg/dL Creatinine (0.4-1.0) mg/dL Estimated GFR (MDRD) (>89) Glucose (70-100) mg/dL Glycated Hemoglobin 5.3 (4.6-6.2) % Estim Average Glucose 105 H (70-100) Calcium (8.5-10.3) mg/dL Magnesium (1.7-2.8) mg/dL Total Bilirubin (0.2-1.0) mg/dL AST (10-42) IU/L ALT (10-60) IU/L Alkaline Phosphatase (42-121) IU/L Total Protein (6.7-8.2) g/dL Albumin (3.2-5.5) g/dL Globulin (2.1-4.2) g/dL Albumin/Globulin Ratio (1.0-2.2) Amylase (28-100) U/L Lipase (22-51) U/L - Current Medications Current Medications: Current Medications Generic Name Dose Route Start Last Admin Trade Name Freq PRN Reason Stop Dose Admin Hydromorphone HCl 1 mg 12/05/16 03:44 12/07/16 08:30 Dilaudid Inj IVP 1 mg Q2HR PRN Administration Pain 8 to 10 Lactated Ringer's 1,000 mls @ 80 mls/hr 12/05/16 04:00 12/07/16 06:45 Lr IV Not Given .[id number] TUTU Piperacillin Sod/Tazobactam 100 mls @ 200 mls/hr 12/06/16 16:00 12/07/16 10:50 Sod 3.375 gm/ Sodium Chloride IV 200 mls/hr Q6H TUTU Administration Ondansetron HCl 4 mg 12/05/16 03:44 12/07/16 00:49 Zofran Inj IVP 4 mg Q6HR PRN Administration Nausea / Vomiting Pantoprazole Sodium 40 mg 12/05/16 07:00 12/07/16 06:24 Protonix IVP 40 mg QDAC TUTU Administration Sodium Chloride 10 ml 12/05/16 03:44 12/07/16 00:49 Normal Saline Flush 0.9% IVP 10 ml PRN PRN Administration NEEDED PER PROVIDER ORDERS Sodium Chloride 10 ml 12/05/16 06:00 12/07/16 05:47 Normal Saline Flush 0.9% IVP Not Given Q8HR TUTU - Physical Exam General Appearance: positive: No acute distress, Lethargic, Other (Appears depressed. Patient is always laying in be when I am in to evaluate her.) Respiratory: positive: No respiratory distress Cardiovascular: positive: Regular rate & rhythm Abdomen: positive: Other (soft, minimally distended, non-tender to light palpation, no gaurding, no rigidity.) Extremities: positive: No pedal edema Neurologic/Psychiatric: positive: Oriented x3, Depressed mood/affect Impression/Plan - Problem List Problem List: Partial small bowel obstruction HD3 - Small bowel series demonstrates contrast in the colon correlating with a likely partial small bowel obstruction. Repeat CT ordered by medical service again demonstrates no evidence of appendicitis with persistently prominent small bowel loops. Will continue current non-operative course as the success rate of non-operative management in partial obstruction is 80-90%. Miralax and Senna syrup via NGT ordered. I again explained to the patient the importance of ambulating to facilitate the return of bowel function. She is agreeable, however , since admission she has ambulated very infrequently. - Improvement in leukocytosis. Will monitor. - UOP remains adequate
[2016-12-07] MEDS: SENNA SYRUP 8.8 MG/5 ML UDC NG SCH ×2 (14:00→21:03)
[2016-12-07] MEDS: LABETALOL 5 MG/1 ML 20 ML MDV IV PRN (17:17)
[2016-12-08] MEDS: PIPERACILLIN/TAZOBACTAM 3.375 GM in SODIUM CHLORIDE 0.9% MINIBAG 100 ML IV SCH ×4 (03:59→21:27)
[2016-12-08] MEDS: LACTATED RINGERS 1,000 ML IV SCH (03:59)
[2016-12-08] MEDS: SODIUM CHLORIDE FLUSH 0.9% 10 ML SYRINGE IVP PRN ×4 (04:12→16:16)
[2016-12-08 05:37] LABS: BILIRUBIN,TOTAL 0.5 mg/dL (0.2-1.0); CREATININE 0.5 mg/dL (0.4-1.0); POTASSIUM 3.6 mmol/L (3.5-5.0); TOTAL PROTEIN 5.5 g/dL (6.7-8.2)
[2016-12-08 06:12] LABS: BASOPHILS % (AUTO) 0.3 %; EOSINOPHILS # (AUTO) 0.1 10^3/uL (0.0-0.7); EOSINOPHILS % (AUTO) 1.8 %; HCT - HEMATOCRIT 37.2 % (37.0-47.0); HGB - HEMOGLOBIN 12.3 g/dL (12.0-16.0); LYMPHOCYTES # (AUTO) 1.2 10^3/uL (1.5-3.5); LYMPHOCYTES % (AUTO) 14.7 %; MEAN CORPUSCULAR HEMOGLOBIN 32.4 pg (27.0-31.0); MEAN CORPUSCULAR HGB CONC 33.1 g/dL (32.0-36.0); MEAN CORPUSCULAR VOLUME 97.7 fL (81.0-99.0); MEAN PLATELET VOLUME 8.8 fL (7.9-10.8); MONOCYTES # (AUTO) 0.7 10^3/uL (0.0-1.0); MONOCYTES % (AUTO) 8.6 %; NEUTROPHILS # (AUTO) 6.1 10^3/uL (1.5-6.6); NEUTROPHILS % (AUTO) 74.6 %; RED CELL DISTRIBUTION WIDTH 12.9 % (12.0-15.0); UNCORRECTED WHITE BLOOD COUNT 8.2 x10^3/uL; WHITE BLOOD COUNT 8.2 x10^3/uL (4.8-10.8)
[2016-12-08] MEDS: SODIUM CHLORIDE FLUSH 0.9% 10 ML SYRINGE IVP SCH ×3 (06:42→16:16)
[2016-12-08] MEDS: PANTOPRAZOLE 40 MG VIAL IVP SCH (06:50)
[2016-12-08] MEDS: SENNA SYRUP 8.8 MG/5 ML UDC NG SCH ×2 (08:29→21:26)
[2016-12-08] MEDS: POLYETHYLENE GLYCOL 3350 17 GM PACKET NG SCH (08:30)
--- NOTE | 2016-12-08 13:34 | PROVIDER PROGRESS NOTE ---
Subjective - General Admit Date: 12/05/16 - Review of Systems Drain Type: ngt Drain Output Description: 700 bilious General: positive: No symptoms Pulmonary: positive: No symptoms Cardiovascular: positive: No symptoms Gastrointestinal: positive: No symptoms, Other (two small BM's yesterday.) Psychiatric: positive: No symptoms, Depression Objective - Patient Data Reviewed Vital Signs: Yes Vital Signs: Vital Signs x48h Temp Pulse Resp BP Pulse Ox 12/08/16 08:16 37.6 C H 88 17 152/83 H 90 L Intake & Output: Intake and Output Totals x24h 12/06/16 12/07/16 12/08/16 23:59 23:59 23:59 Intake Total 1015 2715 1691 Output Total 600 950 150 Balance 415 1765 1541 - Lab Results Lab Results: 12/08/16 04:40 12/08/16 04:40 Other Lab Results: Lab Results x24hrs 12/08/16 12/08/16 Range/Units 04:40 04:40 WBC 8.2 (4.8-10.8) x10^3/uL RBC 3.80 L (4.20-5.40) 10^6/uL Hgb 12.3 (12.0-16.0) g/dL Hct 37.2 (37.0-47.0) % MCV 97.7 (81.0-99.0) fL MCH 32.4 H (27.0-31.0) pg MCHC 33.1 (32.0-36.0) g/dL RDW 12.9 (12.0-15.0) % Plt Count 173 (130-450) 10^3/uL MPV 8.8 (7.9-10.8) fL Neut # 6.1 (1.5-6.6) 10^3/uL Lymph # 1.2 L (1.5-3.5) 10^3/uL [place] # 0.7 (0.0-1.0) 10^3/uL Eos # 0.1 (0.0-0.7) 10^3/uL Baso # 0.0 (0.0-0.1) 10^3/uL Absolute Nucleated RBC 0.00 x10^3/uL Nucleated RBCs 0.0 /100WBC Sodium 141 (135-145) mmol/L Potassium 3.6 (3.5-5.0) mmol/L Chloride 106 (101-111) mmol/L Carbon Dioxide 28 (21-32) mmol/L Anion Gap 7.0 (6-13) BUN 18 (6-20) mg/dL Creatinine 0.5 (0.4-1.0) mg/dL Estimated GFR (MDRD) 122 (>89) Glucose 119 H (70-100) mg/dL Calcium 9.0 (8.5-10.3) mg/dL Total Bilirubin 0.5 (0.2-1.0) mg/dL AST 20 (10-42) IU/L ALT 14 (10-60) IU/L Alkaline Phosphatase 53 (42-121) IU/L Total Protein 5.5 L (6.7-8.2) g/dL Albumin 2.7 L (3.2-5.5) g/dL Globulin 2.8 (2.1-4.2) g/dL Albumin/Globulin Ratio 1.0 (1.0-2.2) - Current Medications Current Medications: Current Medications Generic Name Dose Route Start Last Admin Trade Name Freq PRN Reason Stop Dose Admin Hydromorphone HCl 1 mg 12/05/16 03:44 12/07/16 21:22 Dilaudid Inj IVP 1 mg Q2HR PRN Administration Pain 8 to 10 Piperacillin Sod/Tazobactam 100 mls @ 200 mls/hr 12/06/16 16:00 12/08/16 10:19 Sod 3.375 gm/ Sodium Chloride IV 200 mls/hr Q6H TUTU Administration Labetalol HCl 10 mg 12/05/16 03:50 12/07/16 17:17 Trandate Inj IV 10 mg Q8HR PRN Administration Blood Pressure Ondansetron HCl 4 mg 12/05/16 03:44 12/07/16 16:14 Zofran Inj IVP 4 mg Q6HR PRN Administration Nausea / Vomiting Pantoprazole Sodium 40 mg 12/05/16 07:00 12/08/16 06:50 Protonix IVP 40 mg QDAC TUTU Administration Polyethylene Glycol 17 gm 12/07/16 13:05 12/08/16 08:30 Miralax NG 17 gm DAILY TUTU Administration Senna 8.8 mg 12/07/16 13:00 12/08/16 08:29 Senokot Syrup NG 8.8 mg BID TUTU Administration Sodium Chloride 10 ml 12/05/16 03:44 12/08/16 06:58 Normal Saline Flush 0.9% IVP 10 ml PRN PRN Administration NEEDED PER PROVIDER ORDERS Sodium Chloride 10 ml 12/05/16 06:00 12/08/16 06:42 Normal Saline Flush 0.9% IVP Not Given Q8HR TUTU - Physical Exam General Appearance: positive: No acute distress, Other (in bed laying flat. She states that she feels very tired) Respiratory: positive: Breath sounds nml Cardiovascular: positive: Regular rate & rhythm Abdomen: positive: Other (soft, minimally distended, non-tender to light palpation, + bowel sounds) Extremities: positive: No pedal edema Neurologic/Psychiatric: positive: Oriented x3 Impression/Plan - Problem List Problem List: partial SBO HD 4 - Patient did have small BM yesterday. This is encouraging. She also has good bowel tones today. She remains in bed most of the day and tells me she is very tired. She only ambulated once yesterday. I have asked her to stay out of bed all day until bedtime and to ambulate as much as possible. Additional Miralax and senna ordered.
--- NOTE | 2016-12-08 14:00 | PROVIDER PROGRESS NOTE ---
Subjective - Prog Note Date Prog Note Date: 12/08/16 Prog Note Time: 13:58 - Subjective Pt reports feeling: Improved Subjective: Patient has been seen at bedside. She was up and walking and she has had two bowel movements. some nausea but no abdominal pain. NG tube still in place and receiving miralax. Patient has no fever, no chest pain or shortness of breath. she is anticipating NG tube removal soon pending evaluation with surgery Current Medications - Current Medications Current Medications: Active Medications Generic Name Dose Route Start Last Admin Trade Name Freq PRN Reason Stop Dose Admin Hydromorphone HCl 1 mg 12/05/16 03:44 12/07/16 21:22 Dilaudid Inj IVP 1 mg Q2HR PRN Administration Pain 8 to 10 Piperacillin Sod/Tazobactam 100 mls @ 200 mls/hr 12/06/16 16:00 12/08/16 10:19 Sod 3.375 gm/ Sodium Chloride IV 200 mls/hr Q6H TUTU Administration Labetalol HCl 10 mg 12/05/16 03:50 12/07/16 17:17 Trandate Inj IV 10 mg Q8HR PRN Administration Blood Pressure Ondansetron HCl 4 mg 12/05/16 03:44 12/07/16 16:14 Zofran Inj IVP 4 mg Q6HR PRN Administration Nausea / Vomiting Pantoprazole Sodium 40 mg 12/05/16 07:00 12/08/16 06:50 Protonix IVP 40 mg QDAC TUTU Administration Polyethylene Glycol 17 gm 12/07/16 13:05 12/08/16 08:30 Miralax NG 17 gm DAILY TUTU Administration Prochlorperazine Edisylate 10 mg 12/05/16 03:44 Compazine Inj IVP Q6HR PRN Nausea / Vomiting Senna 8.8 mg 12/07/16 13:00 12/08/16 08:29 Senokot Syrup NG 8.8 mg BID TUTU Administration Sodium Chloride 10 ml 12/05/16 03:44 12/08/16 06:58 Normal Saline Flush 0.9% IVP 10 ml PRN PRN Administration NEEDED PER PROVIDER ORDERS Sodium Chloride 10 ml 12/05/16 06:00 12/08/16 06:42 Normal Saline Flush 0.9% IVP Not Given Q8HR TUTU Atorvastatin Calcium 20 mg PO DAILY 12/05/16 Fluoxetine HCl 20 mg PO DAILY PM 12/05/16 Levothyroxine [Synthroid] 25 mcg PO QDAC 12/05/16 Liothyronine [Cytomel] 15 mcg PO QDAC 12/05/16 Lisinopril 40 mg PO DAILY 12/05/16 Nifedipine [Nifedipine ER] 60 mg PO DAILY 12/05/16 Objective - Vital Signs/Intake & Output Reviewed Vital Signs: Yes Vital Signs: Vital Signs x48h Temp Pulse Resp BP Pulse Ox 12/08/16 08:16 37.6 C H 88 17 152/83 H 90 L Intake & Output: Intake & Output 12/05/16 12/06/16 12/07/16 12/08/16 23:59 23:59 23:59 23:59 Intake Total 1796 1015 2715 1691 Output Total 600 950 150 Balance 4687 728 3694 1541 - Objective General Appearance: positive: No acute distress, Alert Eyes Bilateral: positive: Normal inspection, PERRL ENT: positive: ENT inspection nml, Pharynx nml, No signs of dehydration Neck: positive: Nml inspection, Thyroid nml, No JVD, Trachea midline Respiratory: positive: Chest non-tender, No respiratory distress, Breath sounds nml Cardiovascular: positive: Regular rate & rhythm, No murmur, No gallop Abdomen: positive: Non-tender, No organomegaly, Nml bowel sounds. negative: Guarding, Rebound, Mass Rectal: positive: Stool - heme NEG Back: positive: Nml inspection. negative: CVA tenderness (R), CVA tenderness (L ) Skin: positive: Color nml, No rash, Warm, Dry Extremities: positive: Non-tender, Full ROM, Nml appearance, No pedal edema Neurologic/Psychiatric: positive: Oriented x3, CN's nml (2-12), Motor nml, Sensation nml, Mood/affect nml - Lab Results Fish Bones: 12/08/16 04:40 12/08/16 04:40 Other Labs: Lab Results x24hrs 12/08/16 12/08/16 Range/Units 04:40 04:40 WBC 8.2 (4.8-10.8) x10^3/uL RBC 3.80 L (4.20-5.40) 10^6/uL Hgb 12.3 (12.0-16.0) g/dL Hct 37.2 (37.0-47.0) % MCV 97.7 (81.0-99.0) fL MCH 32.4 H (27.0-31.0) pg MCHC 33.1 (32.0-36.0) g/dL RDW 12.9 (12.0-15.0) % Plt Count 173 (130-450) 10^3/uL MPV 8.8 (7.9-10.8) fL Neut # 6.1 (1.5-6.6) 10^3/uL Lymph # 1.2 L (1.5-3.5) 10^3/uL [place] # 0.7 (0.0-1.0) 10^3/uL Eos # 0.1 (0.0-0.7) 10^3/uL Baso # 0.0 (0.0-0.1) 10^3/uL Absolute Nucleated RBC 0.00 x10^3/uL Nucleated RBCs 0.0 /100WBC Sodium 141 (135-145) mmol/L Potassium 3.6 (3.5-5.0) mmol/L Chloride 106 (101-111) mmol/L Carbon Dioxide 28 (21-32) mmol/L Anion Gap 7.0 (6-13) BUN 18 (6-20) mg/dL Creatinine 0.5 (0.4-1.0) mg/dL Estimated GFR (MDRD) 122 (>89) Glucose 119 H (70-100) mg/dL Calcium 9.0 (8.5-10.3) mg/dL Total Bilirubin 0.5 (0.2-1.0) mg/dL AST 20 (10-42) IU/L ALT 14 (10-60) IU/L Alkaline Phosphatase 53 (42-121) IU/L Total Protein 5.5 L (6.7-8.2) g/dL Albumin 2.7 L (3.2-5.5) g/dL Globulin 2.8 (2.1-4.2) g/dL Albumin/Globulin Ratio 1.0 (1.0-2.2) - Diagnostic Imaging Diagnostic Imaging Results: positive: Final report reviewed - Other Results/Comments Other Results/Comments: Assessment/Plan - Problem List (1) Small bowel obstruction Impression: IMPROVING. PAIN BETTER. PATIENT HAVING BOWEL MOVEMENTS AND RECEIVING MIRALAX. NG TUBE STILL HAVING SOME OUTPUT. CONTINUE WITH PAIN REGIME, IV NEEDED. CONTINUE WITH IVF FOR HYDRATION AND WILL ADVANCE DIET TO CLEARS. ZOFRAN IV FOR NAUSEA (2) Leukocytosis, unspecified Impression: RESOLVING. WBC IMPROVED AND WITHIN NORMAL LIMITS. CONTINUE WITH ZOSYN IV FOR ONE MORE DAY AND THEN MONITOR CBC WITH DAILY LAB DRAWS. CONTINUE WITH IVF FOR HYDRATION AND MONITOR ELECTROLYTES. SURGERY ON CONSULT Qualifiers: Leukocytosis type: unspecified Qualified Code(s): D72.829 - Elevated white blood cell count, unspecified (3) Hyperglycemia, unspecified Impression: ACUTE. HEMO A1C IS WITHIN NORMAL LIMITS AT 5.3. CONTINUE TO MONITOR PROBABLY DUE TO ILLNESS. IMPROVING AND AT 119 THIS MORNING. TIME SPENT WITH PATIENT WAS 40 MINUTES FOR ASSESSMENT, PLANNING AND EDUCATION Assessment/Plan - Problem List (2) Leukocytosis, unspecified Qualifiers: Leukocytosis type: unspecified Qualified Code(s): D72.829 - Elevated white blood cell count, unspecified
[2016-12-08] MEDS: LABETALOL 5 MG/1 ML 20 ML MDV IV PRN (16:16)
[2016-12-09] MEDS: PIPERACILLIN/TAZOBACTAM 3.375 GM in SODIUM CHLORIDE 0.9% MINIBAG 100 ML IV SCH ×2 (04:24→11:09)
[2016-12-09] MEDS: SODIUM CHLORIDE FLUSH 0.9% 10 ML SYRINGE IVP PRN ×4 (04:25→06:45)
[2016-12-09] MEDS: SODIUM CHLORIDE FLUSH 0.9% 10 ML SYRINGE IVP SCH ×2 (05:35→06:45)
[2016-12-09 06:29] LABS: BASOPHILS % (AUTO) 0.5 %; EOSINOPHILS # (AUTO) 0.3 10^3/uL (0.0-0.7); EOSINOPHILS % (AUTO) 3.7 %; HCT - HEMATOCRIT 34.6 % (37.0-47.0); HGB - HEMOGLOBIN 11.7 g/dL (12.0-16.0); LYMPHOCYTES # (AUTO) 1.4 10^3/uL (1.5-3.5); LYMPHOCYTES % (AUTO) 19.2 %; MEAN CORPUSCULAR HEMOGLOBIN 32.6 pg (27.0-31.0); MEAN CORPUSCULAR HGB CONC 33.7 g/dL (32.0-36.0); MEAN CORPUSCULAR VOLUME 96.5 fL (81.0-99.0); MEAN PLATELET VOLUME 8.6 fL (7.9-10.8); MONOCYTES # (AUTO) 0.6 10^3/uL (0.0-1.0); MONOCYTES % (AUTO) 8.5 %; NEUTROPHILS % (AUTO) 68.1 %; RED BLOOD COUNT 3.59 10^6/uL (4.20-5.40); RED CELL DISTRIBUTION WIDTH 12.7 % (12.0-15.0); UNCORRECTED WHITE BLOOD COUNT 7.4 x10^3/uL; WHITE BLOOD COUNT 7.4 x10^3/uL (4.8-10.8)
[2016-12-09 06:35] LABS: CALCIUM 8.9 mg/dL (8.5-10.3); CREATININE 0.5 mg/dL (0.4-1.0)
[2016-12-09] MEDS: PANTOPRAZOLE 40 MG VIAL IVP SCH (06:45)
[2016-12-09 08:00] VITALS: BP 130/57
[2016-12-09] MEDS: SENNA SYRUP 8.8 MG/5 ML UDC NG SCH (09:56)
[2016-12-09] MEDS: POLYETHYLENE GLYCOL 3350 17 GM PACKET NG SCH (09:56)
--- NOTE | 2016-12-09 10:24 | PROVIDER PROGRESS NOTE ---
Subjective - General Admit Date: 12/05/16 - Review of Systems General: positive: No symptoms Pulmonary: positive: No symptoms Cardiovascular: positive: No symptoms Gastrointestinal: positive: No symptoms, Other (Multiple bowel movments. + flatus) Psychiatric: positive: No symptoms, Depression Objective - Patient Data Reviewed Vital Signs: Yes Vital Signs: Vital Signs x48h Temp Pulse Resp BP Pulse Ox 12/09/16 08:00 37.2 C 82 20 130/57 L 92 Intake & Output: Intake and Output Totals x24h 12/07/16 12/08/16 12/09/16 23:59 23:59 23:59 Intake Total 2715 2431 890 Output Total 950 200 Balance 1765 2231 890 - Lab Results Lab Results: 12/09/16 06:02 12/09/16 06:02 Other Lab Results: Lab Results x24hrs 12/09/16 12/09/16 Range/Units 06:02 06:02 WBC 7.4 (4.8-10.8) x10^3/uL RBC 3.59 L (4.20-5.40) 10^6/uL Hgb 11.7 L (12.0-16.0) g/dL Hct 34.6 L (37.0-47.0) % MCV 96.5 (81.0-99.0) fL MCH 32.6 H (27.0-31.0) pg MCHC 33.7 (32.0-36.0) g/dL RDW 12.7 (12.0-15.0) % Plt Count 165 (130-450) 10^3/uL MPV 8.6 (7.9-10.8) fL Neut # 5.0 (1.5-6.6) 10^3/uL Lymph # 1.4 L (1.5-3.5) 10^3/uL [place] # 0.6 (0.0-1.0) 10^3/uL Eos # 0.3 (0.0-0.7) 10^3/uL Baso # 0.0 (0.0-0.1) 10^3/uL Absolute Nucleated RBC 0.00 x10^3/uL Nucleated RBCs 0.0 /100WBC Sodium 141 (135-145) mmol/L Potassium 3.0 L (3.5-5.0) mmol/L Chloride 106 (101-111) mmol/L Carbon Dioxide 28 (21-32) mmol/L Anion Gap 7.0 (6-13) BUN 13 (6-20) mg/dL Creatinine 0.5 (0.4-1.0) mg/dL Estimated GFR (MDRD) 122 (>89) Glucose 111 H (70-100) mg/dL Calcium 8.9 (8.5-10.3) mg/dL - Current Medications Current Medications: Current Medications Generic Name Dose Route Start Last Admin Trade Name Freq PRN Reason Stop Dose Admin Hydromorphone HCl 1 mg 12/05/16 03:44 12/07/16 21:22 Dilaudid Inj IVP 1 mg Q2HR PRN Administration Pain 8 to 10 Piperacillin Sod/Tazobactam 100 mls @ 200 mls/hr 12/06/16 16:00 12/09/16 04:24 Sod 3.375 gm/ Sodium Chloride IV 200 mls/hr Q6H TUTU Administration Labetalol HCl 10 mg 12/05/16 03:50 12/08/16 16:16 Trandate Inj IV 10 mg Q8HR PRN Administration Blood Pressure Ondansetron HCl 4 mg 12/05/16 03:44 12/07/16 16:14 Zofran Inj IVP 4 mg Q6HR PRN Administration Nausea / Vomiting Pantoprazole Sodium 40 mg 12/05/16 07:00 12/09/16 06:45 Protonix IVP 40 mg QDAC TUTU Administration Polyethylene Glycol 17 gm 12/07/16 13:05 12/09/16 09:56 Miralax NG Not Given DAILY TUTU Prochlorperazine Edisylate 10 mg 12/05/16 03:44 12/08/16 16:37 Compazine Inj IVP 10 mg Q6HR PRN Administration Nausea / Vomiting Senna 8.8 mg 12/07/16 13:00 12/09/16 09:56 Senokot Syrup NG Not Given BID TUTU Sodium Chloride 10 ml 12/05/16 03:44 12/09/16 06:45 Normal Saline Flush 0.9% IVP 10 ml PRN PRN Administration NEEDED PER PROVIDER ORDERS Sodium Chloride 10 ml 12/05/16 06:00 12/09/16 06:45 Normal Saline Flush 0.9% IVP 10 ml Q8HR TUTU Administration - Physical Exam General Appearance: positive: No acute distress Respiratory: positive: No respiratory distress Cardiovascular: positive: Regular rate & rhythm Abdomen: positive: Non-tender, Nml bowel sounds, No distention Extremities: positive: No pedal edema Neurologic/Psychiatric: positive: Oriented x3 Impression/Plan - Problem List Problem List: Partial small bowel obstruction - Tolerating clears and having multiple bowel movements - ADAT. plan for DC to home after lunch. - Continue Senna daily as outpatient and Miralax PRN no bowel movement for 24 hours. - Follow up with me in 1 month
--- NOTE | 2016-12-09 11:12 | Discharge Plan ---
Discharge Plan Disposition: Home, Self Care Condition: Good Prescriptions: Saccharomyces Boulardii [Florastor] 250 mg PO BID #60 capsule Polyethylene Glycol 3350 [Miralax] 17 gm PO DAILY #30 packet Senna [Senokot] 8.6 mg PO DAILY #30 tablet Diet: Regular (LOW RESIDUAL REGULAR) Activity Restrictions: No Restrictions Shower Restrictions: No Driving Restrictions: No Weight Bearing: Full Weight Instruction Topics: Obstruction Sm Bowel Additional Instructions or Follow Up instructions: PLEASE CONTINUE TO TAKE ALL HOME MEDICATIONS PRESCRIBED. YOU HAVE BEEN GIVEN TWO PRESCRIPTIONS FOR BOWEL REGIME INCLUDING SENNA AND MIRALAX. TAKE PRESCRIBED. CONTINUE WITH A DIET THAT IS LOW RESIDUAL AND CONTINUE TO AVOID SODA AND DRINK PLENTY OF WATER THROUGHOUT THE DAY PLEASE CONTINUE TO WALKING DAILY. YOU NEED TO HAVE AT LEAST 20 MINUTES OF VIGOROUS EXERCISE 3-5 TIMES A WEEK. THIS WILL HELP KEEP THE BOWELS MOVING PLEASE SEE YOUR PRIMARY CARE PROVIDER WITHIN 1 WEEK OF DISCHARGE AND YOU WILL NEED TO SEE A GI SPECIALIST OUTPATIENT FOR POSSIBLE REOCCURRENCE IF YOU HAVE SYPTOMS REOCCUR BEFORE THEN PLEASE RETURN TO THE ER. IF YOU HAVE CHEST PAIN OR SHORTNESS OF BREATH CALL 911 OR RETURN TO THE ER No Smoking: If you smoke, Please STOP! Call for help. Follow-up with: Chrissie Frey MD [Primary Care Provider] -
[2016-12-09] MEDS ORDERED: SACCHAROMYCES BOULARDII 250 MG CAPSULE PO SCH (12:00)
--- NOTE | 2016-12-09 14:23 | DISCHARGE SUMMARY ---
"Discharge Summary Admit Date: 12/05/16 Discharge Date: 12/09/16 Discharging Provider: WILIAN LOVE APRN Code Status: Attempt Resuscitation Condition at Discharge: Good Discharge Disposition: 01 Home, Self Care Discharge Facility Name: HOME - DIAGNOSES Admission Diagnoses: 1. ACUTE ABDOMINAL PAIN WITH SMALL BOWEL OBSTRUCTION 2. HYPERGLYCEMIA WITHOUT DIAGNOSIS OF DIABETES 3. NAUSEA AND VOMITING, ACUTE Discharge Diagnoses with Status of Each Condition: 1. ACUTE ABDOMINAL PAIN LEFT LOWER QUADRANT WITH SBO 2. ACUTE HYPERGLYCEMIA, UNSPECIFIED 3. ACUTE LEUKOCYTOSIS WITH SBO 4. HYPOTHYROIDISM, UNSPECIFIED AND CHRONIC 5. BENIGN HYPERTENSION - HPI History of Present Illness: - History of Present Illness Timing - onset: Enter time (2129), Today Timing - duration: Hours Timing - details: Abrupt onset, Still present Quality: Sharp, Pain Location: RLQ Improved by: Laying still Worsened by: Eating, Moving, Breathing, Position, Palpation Associated symptoms: Nausea, Vomiting Similar symptoms before: Has not had sx before Recently seen: Not recently seen - Additional information Additional information: 71-year-old female with a history of hypertension and prior hemorrhagic CVA has developed abdominal pain in the right lower quadrant today to about 9:30 PM. She felt that this may have something to do with some cookies that she ate. The pain has been persistent and worsening she vomited on the way to the hospital the pain is located in the right lower quadrant and is worse with any movement. The patient states that she is very uncomfortable. She has never had this pain previously. She has been feeling fatigued recently. - CONSULTS | PROCEDURES Consultations: DR ALFARO WITH SURGERY Procedures: NG TUBE FOR DECOMPRESSION OF STOMACH CT OF ABDOMEN AND PELVIS-IMPRESSION WITH SMALL BOWEL OBSTRUCTION VERSUS ILEUS - HOSPITAL COURSE Hospital Course: Patient is a 71 year old female who was admitted for abdominal pain with possible Small bowel obstruction vs ileus. She was placed on NGT with intermittent suction. NPO status and given bowel rest. IVF D5NS with KCL was started for IVF hydration. She was given Zofran and Phenergan IV for nausea and vomiting. Second day, gastrograffin study with 100 cc non-diluted gastrograffin and serial abdominal xrays to determine ileus vs SBO was completed. Patient was seen to have obstruction. She had developed Leukocytosis and was started on Zosyn IV. She remained afebrile. Abdominal xray repeated with no signs of free air. There were no findings on initial CT to suggest appendicitis or other intra -abdominal infectious etiology other than dilated loops of small bowel. She was encouraged to ambulate with physical therapy and nursing assist. She was given IV dilaudid for pain. With continued improvement, patient started to have bowel movements. She was given clear liquids and tolerated well. She continued to improve and NG tube was removed on the 3rd day. She was ambulating and had minimal nausea. She continued to receive miralax and senna for bowel regime. She tolerated them well. On the day of discharge, she was ambulating, tolerating soft diet and pain reduced with no nausea. She was removed from the IVF and the IV antibiotics. Her white count resolved to 8.6. She did have an elevated blood glucose at admission and hemoglobin A1C was checked and found to be within the normal limits. Blood glucose improved before discharge. She was discharged home with miralax and senna and given instructions for follow up with surgery and primary care provider within one week. - ALLERGIES Allergies/Adverse Reactions: Allergies Allergy/AdvReac Type Severity Reaction Status Date / Time No Known Drug Allergies Allergy Verified 12/04/16 22:41 - MEDICATIONS Home Medications: Ambulatory Orders Medication Instructions Recorded Confirmed Atorvastatin Calcium 20 mg PO DAILY 12/05/16 12/05/16 Fluoxetine HCl 20 mg PO DAILY PM 12/05/16 12/05/16 Levothyroxine [Synthroid] 25 mcg PO QDAC 12/05/16 12/05/16 Liothyronine [Cytomel] 15 mcg PO QDAC 12/05/16 12/05/16 Lisinopril 40 mg PO DAILY 12/05/16 12/05/16 Nifedipine [Nifedipine ER] 60 mg PO DAILY 12/05/16 12/05/16 Polyethylene Glycol 3350 [Miralax] 17 gm PO DAILY #30 packet 12/09/16 Saccharomyces Boulardii [Florastor] 250 mg PO BID #60 capsule 12/09/16 Senna [Senokot] 8.6 mg PO DAILY #30 tablet 12/09/16 - PHYSICAL EXAM AT DISCHARGE General Appearance: positive: No acute distress, Alert Eyes Bilateral: positive: Normal inspection, PERRL, EOMI ENT: positive: ENT inspection nml, Pharynx nml, No signs of dehydration Neck: positive: Nml inspection, Thyroid nml, No JVD, Trachea midline Respiratory: positive: Chest non-tender, No respiratory distress, Breath sounds nml Cardiovascular: positive: Regular rate & rhythm, No murmur, No gallop. negative : JVD present Peripheral Pulses: positive: 2+ Abdomen: positive: Non-tender, No organomegaly, Nml bowel sounds, No distention. negative: Tenderness, Guarding, Rebound Rectal: positive: Non-tender Back: positive: Nml inspection Skin: positive: Color nml, No rash, Warm, Dry Extremities: positive: Non-tender, Full ROM, Nml appearance, No pedal edema Neurologic/Psychiatric: positive: Oriented x3, CN's nml (2-12), Motor nml, Sensation nml, Mood/affect nml - LABS Result Diagrams: 12/09/16 06:02 12/09/16 06:02 Other Lab Results: Laboratory Last Values WBC 7.4 x10^3/uL (4.8-10.8) 12/09/16 06:02 RBC 3.59 10^6/uL (4.20-5.40) L 12/09/16 06:02 Hgb 11.7 g/dL (12.0-16.0) L 12/09/16 06:02 Hct 34.6 % (37.0-47.0) L 12/09/16 06:02 MCV 96.5 fL (81.0-99.0) 12/09/16 06:02 MCH 32.6 pg (27.0-31.0) H 12/09/16 06:02 MCHC 33.7 g/dL (32.0-36.0) 12/09/16 06:02 RDW 12.7 % (12.0-15.0) 12/09/16 06:02 Plt Count 165 10^3/uL (130-450) 12/09/16 06:02 MPV 8.6 fL (7.9-10.8) 12/09/16 06:02 Neut # 5.0 10^3/uL (1.5-6.6) 12/09/16 06:02 Lymph # 1.4 10^3/uL (1.5-3.5) L 12/09/16 06:02 [place] # 0.6 10^3/uL (0.0-1.0) 12/09/16 06:02 Eos # 0.3 10^3/uL (0.0-0.7) 12/09/16 06:02 Baso # 0.0 10^3/uL (0.0-0.1) 12/09/16 06:02 Absolute Nucleated RBC 0.00 x10^3/uL 12/09/16 06:02 Nucleated RBCs 0.0 /100WBC 12/09/16 06:02 Sodium 141 mmol/L (135-145) 12/09/16 06:02 Potassium 3.0 mmol/L (3.5-5.0) L 12/09/16 06:02 Chloride 106 mmol/L (101-111) 12/09/16 06:02 Carbon Dioxide 28 mmol/L (21-32) 12/09/16 06:02 Anion Gap 7.0 (6-13) 12/09/16 06:02 BUN 13 mg/dL (6-20) 12/09/16 06:02 Creatinine 0.5 mg/dL (0.4-1.0) 12/09/16 06:02 Estimated GFR (MDRD) 122 (>89) 12/09/16 06:02 Glucose 111 mg/dL (70-100) H 12/09/16 06:02 Glycated Hemoglobin 5.3 % (4.6-6.2) 12/06/16 08:35 Estim Average Glucose 105 (70-100) H 12/06/16 08:35 Lactic Acid 1.6 mmol/L (0.5-2.2) 12/05/16 05:55 Calcium 8.9 mg/dL (8.5-10.3) 12/09/16 06:02 Phosphorus 2.5 mg/dL (2.5-4.6) 12/05/16 05:55 Magnesium 2.1 mg/dL (1.7-2.8) 12/07/16 05:53 Total Bilirubin 0.5 mg/dL (0.2-1.0) 12/08/16 04:40 AST 20 IU/L (10-42) 12/08/16 04:40 ALT 14 IU/L (10-60) 12/08/16 04:40 Alkaline Phosphatase 53 IU/L (42-121) 12/08/16 04:40 Total Protein 5.5 g/dL (6.7-8.2) L 12/08/16 04:40 Albumin 2.7 g/dL (3.2-5.5) L 12/08/16 04:40 Globulin 2.8 g/dL (2.1-4.2) 12/08/16 04:40 Albumin/Globulin Ratio 1.0 (1.0-2.2) 12/08/16 04:40 Amylase 32 U/L (28-100) 12/07/16 05:53 Lipase 23 U/L (22-51) 12/07/16 05:53 Urine Color LT. YELLOW 12/05/16 00:45 Urine Clarity CLEAR (CLEAR) 12/05/16 00:45 Urine pH 7.5 PH (5.0-7.5) 12/05/16 00:45 Ur Specific [place] 1.015 (1.002-1.030) 12/05/16 00:45 Urine Protein NEGATIVE mg/dL (NEGATIVE) 12/05/16 00:45 Urine Glucose (UA) NEGATIVE mg/dL (NEGATIVE) 12/05/16 00:45 Urine Ketones NEGATIVE mg/dL (NEGATIVE) 12/05/16 00:45 Urine Occult Blood NEGATIVE (NEGATIVE) 12/05/16 00:45 Urine Nitrite NEGATIVE (NEGATIVE) 12/05/16 00:45 Urine Bilirubin NEGATIVE (NEGATIVE) 12/05/16 00:45 Urine Urobilinogen 0.2 (NORMAL) E.U./dL (NORMAL) 12/05/16 00:45 Ur Leukocyte Esterase NEGATIVE (NEGATIVE) 12/05/16 00:45 Ur Microscopic Review NOT INDICATED 12/05/16 00:45 Urine Culture Comments NOT INDICATED 12/05/16 00:45 - DIAGNOSTIC IMAGING Diagnostic Imaging Results: Final report reviewed - FOLLOW UP Follow Up: PATIENT WAS INSTRUCTED TO SEE PRIMARY CARE PROVIDER IN ONE WEEK AND TO SEE SURGERY WITHIN THE WEEK. SHE WAS GIVEN INSTRUCTIONS TO CONTINUE TO TAKE THE SENNA AND MIRALAX. SHE WAS TOLD TO RETURN IF SYMPTOMS RETURN OR WORSEN. SHE WAS TAKEN HOME WITH FAMILY AND DISCHARGED WITH VITALS STABLE. - TIME SPENT Time Spent in Discharge (Minutes): 45 (for discharge planning and assessment)"
== END 2016-12-09 14:33 | disposition home or self-care (01) | DRG 390 ==
LOC: ED 22:23 → MS3 12-05 03:44
PROVIDERS: ADMIT Internal Medicine; ATTEND Nurse Practitioner
DX: K56.60 Unspecified intestinal obstruction (principal); R73.9 Hyperglycemia, unspecified; E78.00 Pure hypercholesterolemia, unspecified; Z86.73 Personal history of transient ischemic attack (TIA), and cerebral infarction without residual deficits; D72.829 Elevated white blood cell count, unspecified; I69.298 Other sequelae of other nontraumatic intracranial hemorrhage; E03.9 Hypothyroidism, unspecified; I10 Essential (primary) hypertension; E78.5 Hyperlipidemia, unspecified; F32.9 Major depressive disorder, single episode, unspecified
CPT/HCPCS: 36415; 71010; 74020; 74176; 74177; 74250; 76705; 80048; 80053; 81001; 81003; 82150; 83036; 83605; 83690; 83735; 84100; 85025; 87086; 96361; 96374; 96375; 99284; 99285

== ENCOUNTER 2016-12-14 08:37 | Emergency (ER) | payer MEDICARE ==
[2016-12-14] MEDS ORDERED: SODIUM CHLORIDE 0.9% 1,000 ML IV ONE ×3 (09:21→12:46)
[2016-12-14 09:40] LABS: BASOPHILS % (AUTO) 0.5 %; EOSINOPHILS % (AUTO) 0.4 %; HCT - HEMATOCRIT 41.5 % (37.0-47.0); HGB - HEMOGLOBIN 13.6 g/dL (12.0-16.0); LYMPHOCYTES % (AUTO) 5.9 %; MEAN CORPUSCULAR HEMOGLOBIN 31.5 pg (27.0-31.0); MEAN CORPUSCULAR HGB CONC 32.9 g/dL (32.0-36.0); MEAN CORPUSCULAR VOLUME 95.7 fL (81.0-99.0); MEAN PLATELET VOLUME 8.3 fL (7.9-10.8); NEUTROPHILS % (AUTO) 85.2 %; RED BLOOD COUNT 4.34 10^6/uL (4.20-5.40); RED CELL DISTRIBUTION WIDTH 12.9 % (12.0-15.0); UNCORRECTED WHITE BLOOD COUNT 16.1 x10^3/uL; WHITE BLOOD COUNT 16.1 x10^3/uL (4.8-10.8)
[2016-12-14 09:52] LABS: ALBUMIN/GLOBULIN RATIO 1.2 (1.0-2.2); BILIRUBIN,TOTAL 0.9 mg/dL (0.2-1.0); CREATININE 1.2 mg/dL (0.4-1.0); POTASSIUM 3.2 mmol/L (3.5-5.0); TOTAL PROTEIN 7.6 g/dL (6.7-8.2)
[2016-12-14 10:11] LABS: BAND NEUTROPHILS % (MANUAL) 5 %; EOSINOPHILS % (MANUAL) 1 %; LYMPHOCYTES % (MANUAL) 1 %; NEUTROPHILS % (MANUAL) 75 %; TOTAL CELLS COUNTED 100
[2016-12-14 10:13] LABS: NP AUTO DIFFERENTIAL? YES; NP MAN DIFFERENTIAL? NO
[2016-12-14] MEDS ORDERED: POTASSIUM BICARB 25 MEQ TABLET PO STA (11:52)
[2016-12-14] MEDS ORDERED: POTASSIUM BICARB 25 MEQ TABLET PO ONE (12:03)
[2016-12-14 13:52] VITALS: BP 106/59
[2016-12-14 14:27] LABS: BILIRUBIN,URINE NEGATIVE (NEGATIVE); UA CHARGE (STRIP ONLY) YES; UR CULTURE IF IND NOT INDICATED
--- NOTE | 2016-12-14 15:04 | ED Physician Documentation ---
PD HPI NVD - Stated complaint Stated Complaint: ABD PX/VOMITING/CP - Chief complaint Chief Complaint: Abd Pain - History obtained from History obtained from: Patient - History of Present Illness Timing - onset: How many days ago (10) Timing - duration: Days (10) Timing - details: Abrupt onset, Still present, Waxing and waning Associated symptoms: Abdominal pain, Loss of appetite, Other (diarrhea) Contributing factors: Bad food (ate 3 oatmeal cookies prior to onset of symptoms ) Improved by: Laying still Similar symptoms before: Has not had sx before Recently seen: Admitted - Additonal information Additional information: 71-year-old female was seen here 10 days ago in the emergency department when she had eaten 3 oatmeal cookies and developed sudden onset of abdominal pain and bloating. She had a bowel obstruction and spent 5 days in the hospital. She has not had surgical procedures previously. She began to develop diarrhea the last 2 days her hospitalization and has continued to have diarrhea daily. She has had significant amount of diarrhea and feels very dehydrated. Review of Systems Constitutional: reports: Chills, Myalgias. denies: Fever Eyes: denies: Decreased vision Ears: denies: Ear pain Throat: denies: Sore throat Cardiac: denies: Chest pain / pressure, Palpitations Respiratory: denies: Dyspnea, Cough GI: reports: Abdominal Pain, Nausea, Vomiting, Diarrhea : denies: Dysuria, Frequency Skin: denies: Rash Musculoskeletal: denies: Neck pain, Back pain, Extremity pain PD PAST MEDICAL HISTORY - Past Medical History Past Medical History: Yes Cardiovascular: Hypertension, High cholesterol Neuro: CVA Endocrine/Autoimmune: HyPOthyroidism GI: Other Other Past Medical History: bowel obstruction - Past Surgical History Past Surgical History: Yes General: Hiatal hernia repair /[employer]: Hysterectomy - Present Medications Home Medications: Ambulatory Orders Medication Instructions Recorded Confirmed Atorvastatin Calcium 20 mg PO DAILY 12/05/16 12/05/16 Fluoxetine HCl 20 mg PO DAILY PM 12/05/16 12/05/16 Levothyroxine [Synthroid] 25 mcg PO QDAC 12/05/16 12/05/16 Liothyronine [Cytomel] 15 mcg PO QDAC 12/05/16 12/05/16 Lisinopril 40 mg PO DAILY 12/05/16 12/05/16 Nifedipine [Nifedipine ER] 60 mg PO DAILY 12/05/16 12/05/16 Polyethylene Glycol 3350 [Miralax] 17 gm PO DAILY #30 packet 12/09/16 Saccharomyces Boulardii [Florastor] 250 mg PO BID #60 capsule 12/09/16 Senna [Senokot] 8.6 mg PO DAILY #30 tablet 12/09/16 Ondansetron Odt [Zofran] 4 mg TL Q6H PRN #10 tablet 12/14/16 - Allergies Allergies/Adverse Reactions: Allergies Allergy/AdvReac Type Severity Reaction Status Date / Time No Known Drug Allergies Allergy Verified 12/04/16 22:41 - Social History Does the pt smoke?: No Smoking Status: Never smoker Does the pt drink ETOH?: No Does the pt have substance abuse?: No - Immunizations Immunizations are current?: Yes PD ED PE NORMAL - Vitals Vital signs reviewed: Yes (Tachycardic) - General General: No acute distress, Well developed/nourished - HEENT HEENT: Atraumatic, PERRL, EOMI - Neck Neck: Supple, no meningeal sign - Cardiac Cardiac: No murmur, Other (Tachycardia to 110) - Respiratory Respiratory: No respiratory distress, Clear bilaterally - Abdomen Abdomen: Soft, Other (Mild general tenderness without guarding or rebound, No distention.) - Back Back: No CVA TTP, No spinal TTP - Derm Derm: Normal color, Warm and dry, No rash - Extremities Extremities: No deformity, No edema - Neuro Neuro: No motor deficit, No sensory deficit - Psych Psych: Normal mood, Normal affect Results - Vitals Vitals: Vital Signs - 24 hr 12/14/16 12/14/16 12/14/16 08:53 11:01 11:51 Temperature 35.9 C L 36.1 C L 36.5 C Heart Rate 116 H 100 92 Respiratory 20 12 15 Rate Blood Pressure 114/70 117/63 131/62 H O2 Saturation 98 96 96 12/14/16 13:51 Temperature 36.2 C L Heart Rate 86 Respiratory 15 Rate Blood Pressure 106/59 L O2 Saturation 99 Oxygen O2 Source Room air - Labs Labs: Microbiology 12/14/16 09:26 Campylobacter Antigen Assay - Final Stool 12/14/16 08:45 Clostridium difficile (PCR) - Final Stool Laboratory Tests 12/14/16 12/14/16 12/14/16 09:35 09:35 09:35 WBC 16.1 H RBC 4.34 Hgb 13.6 Hct 41.5 MCV 95.7 MCH 31.5 H MCHC 32.9 RDW 12.9 Plt Count 340 MPV 8.3 Neut # [employer] DEVELOPMENT CONSULTANT Lymph # IT WEB DEVELOPMENT CONSULTANT [place] # IT WEB DEVELOPMENT CONSULTANT Eos # IT WEB DEVELOPMENT CONSULTANT Baso # IT WEB DEVELOPMENT CONSULTANT Absolute Nucleated RBC IT [employer] DEVELOPMENT CONSULTANT Total Counted 100 Band Neuts % (Manual) 5 Reactive Lymphs % (Man) 12 Metamyelocytes % 1 H Myelocytes % 1 H Nucleated RBC % IT [employer] DEVELOPMENT CONSULTANT Neutrophils # (Manual) 12.9 H Lymphocytes # (Manual) 2.1 Monocytes # (Manual) 0.6 Eosinophils # (Manual) 0.2 Differential Comment MANUAL DIFFERENTIAL Manual Slide Review Indicated RBC Morph Micro Appear 1+ SCHISTOCYTES Sodium 141 Potassium 3.2 L Chloride 99 L Carbon Dioxide 28 Anion Gap 14.0 H BUN 16 Creatinine 1.2 H Estimated GFR (MDRD) 44 L Glucose 141 H Calcium 10.0 Total Bilirubin 0.9 AST 32 ALT 25 Alkaline Phosphatase 80 Troponin I < 0.04 Total Protein 7.6 Albumin 4.2 Globulin 3.4 Albumin/Globulin Ratio 1.2 Lipase 78 H Urine Color Urine Clarity Urine pH Ur Specific [place] Urine Protein Urine Glucose (UA) Urine Ketones Urine Occult Blood Urine Nitrite Urine Bilirubin Urine Urobilinogen Ur Leukocyte Esterase Ur Microscopic Review Urine Culture Comments 12/14/16 14:08 WBC RBC Hgb Hct MCV MCH MCHC RDW Plt Count MPV Neut # Lymph # [place] # Eos # Baso # Absolute Nucleated RBC Total Counted Band Neuts % (Manual) Reactive Lymphs % (Man) Metamyelocytes % Myelocytes % Nucleated RBC % Neutrophils # (Manual) Lymphocytes # (Manual) Monocytes # (Manual) Eosinophils # (Manual) Differential Comment Manual Slide Review RBC Morph Micro Appear Sodium Potassium Chloride Carbon Dioxide Anion Gap BUN Creatinine Estimated GFR (MDRD) Glucose Calcium Total Bilirubin AST ALT Alkaline Phosphatase Troponin I Total Protein Albumin Globulin Albumin/Globulin Ratio Lipase Urine Color YELLOW Urine Clarity CLEAR Urine pH 6.0 Ur Specific [place] >=1.030 H Urine Protein TRACE Urine Glucose (UA) NEGATIVE Urine Ketones 15 H Urine Occult Blood NEGATIVE Urine Nitrite NEGATIVE Urine Bilirubin NEGATIVE Urine Urobilinogen 0.2 (NORMAL) Ur Leukocyte Esterase NEGATIVE Ur Microscopic Review NOT INDICATED Urine Culture Comments NOT INDICATED Procedures - IVC sono (time) 0915 Bedside IVC sono: IVC measures (cm) (0.58), IVC collapsed c insp (cm) (complete) , Profound dehydration PD MEDICAL DECISION MAKING - ED course Complexity details: reviewed old records, reviewed results, re-evaluated patient , considered differential, d/w patient ED course: 71-year-old female with recent admission for bowel obstruction has now developed flow-through diarrhea for the past week and she is weak and dehydrated. She has profound dehydration on interrogation of the inferior vena cava and she is administered 3 L of normal saline IV. She feels much improved she is able to provide a stool specimen for which we are able to test for C. difficile and Campylobacter. These are both negative tests. The patient has not been using Imodium and she has continued to use a stool softener. I have asked her to stop the stool softener and to use Imodium. I do feel the patient will likely resolve her gastroenteritis without hospitalization. Departure - Departure Disposition: 01 Home, Self Care Clinical Impression: Dehydration Diarrhea Qualifiers: Diarrhea type: unspecified type Qualified Code(s): R19.7 - Diarrhea, unspecified Condition: Stable Instructions: ED Dehydration, ED Diet Vomiting Diarrhea Follow-Up: Chrissie Frey MD [Primary Care Provider] - Prescriptions: Ondansetron Odt [Zofran] 4 mg TL Q6H PRN #10 tablet PRN Reason: Nausea / Vomiting Comments: Today your profoundly dehydrated and we believe we have adequately hydrated you to have a reserve. We recommend stopping your stool softener and using some Imodium available [id number]. Hydrate excessively and use the Zofran as needed.
== END 2016-12-14 15:37 | disposition home or self-care (01) ==
LOC: ED 08:37
DX: E86.0 Dehydration (principal); I10 Essential (primary) hypertension; E78.00 Pure hypercholesterolemia, unspecified; Z86.73 Personal history of transient ischemic attack (TIA), and cerebral infarction without residual deficits; E03.9 Hypothyroidism, unspecified
CPT/HCPCS: 36415; 80053; 81003; 83690; 84484; 85025; 87045; 87046; 87493; 96360; 96361; 99283; A9270; 81001; 87086

== ENCOUNTER 2017-11-28 13:58 | Emergency (ER) | payer MEDICARE ==
[2017-11-28 14:07] VITALS: BP 112/94
== END 2017-11-28 15:27 | disposition left against medical advice (07) ==
LOC: ED 13:58
DX: Z53.21 Procedure and treatment not carried out due to patient leaving prior to being seen by health care provider (principal)

== ENCOUNTER 2020-10-27 17:01 | Outpatient (CLI) | payer MEDICARE | END 2020-10-27 17:02 | disposition home or self-care (01) | LOC: COV 17:01 | PROVIDERS: ATTEND Family Medicine | DX: R53.83 Other fatigue (principal); Z20.822 Contact with and (suspected) exposure to COVID-19 ==

== ENCOUNTER 2023-02-27 09:22 | Outpatient (CLI) | payer MEDICARE ==
--- NOTE | 2023-02-28 09:13 | Mammography Report ---
BILATERAL DIGITAL SCREENING MAMMOGRAM 3D/2D: 02/27/2023 CLINICAL: Routine screening. Comparison is made to exams dated: 05/25/2021 mammogram, 06/09/2017 mammogram, and 02/28/2020 mammogram - [facility]. There are scattered areas of fibroglandular density in both breasts (category b / 25%-50% glandular t issue). No significant masses, calcifications, or other findings are seen in either breast. There has been no significant interval change. IMPRESSION: NEGATIVE There is no mammographic evidence of malignancy. A 1 year screening mammogram is recommended. Based on the Tyrer Cuzick model (a risk assessment model) the patients lifetime risk is 2.2% and her 10 year risk is 0.0%. According to the ACR, ACS, and NCCN guidelines, an annual breast MRI exam neil g with mammogram is recommended if the patients lifetime risk is 20% or greater. This exam was interpreted at Station ID: [id number]. NOTE: For mammograms, a report in lay terms will be sent to the patient. Approximately 15% of breast malignancies will not be visualized mammographically. In the management of a palpable breast mass, a negative mammogram must not discourage biopsy of a clinically suspicious lesion. Electronically Signed By: Alejandra fermin/sharee:02/27/2023 15:32:23 letter sent: No_Letter ACR BI-RADS Category 1: Negative 3341F PARENCHYMAL PATTERN: (A) - The breast(s) demonstrate(s) scattered fibroglandular densities. BI-RADS CATEGORY: (1) - 1 Mammogram [id number] 1 year screening LATERALITY: (B)
== END 2023-02-27 09:23 | disposition home or self-care (01) ==
LOC: DI 09:22
PROVIDERS: ATTEND Internal Medicine
DX: Z12.31 Encounter for screening mammogram for malignant neoplasm of breast (principal); R92.323 Mammographic fibroglandular density, bilateral breasts

== ENCOUNTER 2023-11-14 14:31 | Outpatient (CLI) | payer MEDICARE ==
--- NOTE | 2023-11-16 15:44 | XRAY Report ---
PROCEDURE: Knee 3V RT INDICATIONS: RIGHT KNEE PAIN TECHNIQUE: 3 views of the knee was obtained. COMPARISON: None FINDINGS: Bones: No fractures or dislocations. No suspicious bony lesions. Severe medial and mild lateral com partmental joint space narrowing with marginal osteophyte. Generalized decreased osseous mineralizati on present. Soft tissues: No knee joint effusion. No suspicious soft tissue calcifications or masses. IMPRESSION: Severe medial compartment osteoarthritis Reviewed by: Ranjan Griffin MD on 11/16/2023 2:43 PM AKDT Approved by: Ranjan Griffin MD on 11/16/2023 2:43 PM AKDT Station ID: [id number]
== END 2023-11-14 14:32 | disposition home or self-care (01) ==
LOC: DI 14:31
PROVIDERS: ATTEND Internal Medicine
DX: M79.10 Myalgia, unspecified site (principal); M17.11 Unilateral primary osteoarthritis, right knee